=== PATIENT | male | born 1945 | race Caucasian/White ===

== ENCOUNTER 2017-01-14 15:16 | Emergency (ER) | payer OTHER ==
[~2017-01-14] VITALS: Ht 175.3 cm; Wt 83.9 kg
[~2017-01-14 15:16] MED LIST: ASPIR 8181 MG PO; BENADRYL25 MG PO; BYSTOLIC 5 MG5 M1 PO; CATAPRES0.2 MG PO; CENTRUM SILVER1 EAC4 PO; CIPROFLOXACIN500 M1 PO; CLONIDINE PO; FLAGYL500 MG PO; FLOMAX PO; FLOMAX0.4 MG PO; HYDROCHLOROTHIA25 M1 PO; HYDROCODON-ACE1 EAC7 PO; LORAZEPAM 1 MG T1 MG PO; LORTAB 7.5/5001 TA3 PO; PRILOSEC 20 MG20 MG PO; PRILOSEC40 MG PO; PROZAC40 MG PO; SAW PALMETTO500 MG PO
[2017-01-14 16:03] LABS: HEMATOCRIT 43.5 % (42.0-52.0); HEMOGLOBIN 14.2 gm/dL (14.0-18.0); MANUAL DIFF YES; MCH 23.5 pg (26.0-34.0); MCHC 32.5 g/dL (28.0-37.0); MCV 72.1 fL (80.0-100.0); PLATELET COUNT 303 thou/uL (150-400); RBC 6.04 mil/uL (4.50-6.00); RDW 16.6 % (10.5-14.5); WBC 14.4 thou/uL (4.0-11.0)
[2017-01-14 16:26] LABS: CALCIUM 8.9 mg/dL (8.5-10.1); CREATININE 1.2 mg/dL (0.7-1.3); POTASSIUM 4.1 mmol/L (3.5-5.1)
[2017-01-14 16:27] LABS: ABSOLUTE NEUTROPHILS 12.1 thou/uL (1.4-8.2); ANISOCYTOSIS 1+; TOTAL CELL COUNT 100
[2017-01-14 16:28] LABS: MICROCYTES 1+
[2017-01-14 16:31] LABS: ALBUMIN 3.6 g/dL (3.4-5.0); TOTAL BILIRUBIN 0.6 mg/dL (<0.1-1.0)
[2017-01-14 16:52] LABS: URINE BILIRUBIN NEGATIVE (Negative); URINE BLOOD NEGATIVE (Negative); URINE COLOR YELLOW; URINE GLUCOSE-RANDOM* NEGATIVE (Negative); URINE KETONES NEGATIVE (Negative); URINE NITRITE NEGATIVE (Negative); URINE PROTEIN (DIPSTICK) NEGATIVE (Negative); URINE UROBILINOGEN 0.2 E.U./dl (0.2-1.0)
[2017-01-14] MEDS ORDERED: FLAGYL500 MG PO (17:50)
[2017-01-14] MEDS ORDERED: ONDANSETRON HCL4 M2 PO (17:50)
[2017-01-14] MEDS ORDERED: CIPRO500 MG PO (17:50)
[2017-01-14] MEDS ORDERED: NORCO 5-325 TA1 EACH PO (17:54)
== END 2017-01-14 18:14 | disposition home or self-care (01) ==
LOC: ER 15:16
PROVIDERS: Physician Assistant
DX: K57.92 Diverticulitis of intestine, part unspecified, without perforation or abscess without bleeding (principal); I10 Essential (primary) hypertension; E78.00 Pure hypercholesterolemia, unspecified; F32.9 Major depressive disorder, single episode, unspecified; F41.9 Anxiety disorder, unspecified; N40.0 Benign prostatic hyperplasia without lower urinary tract symptoms; Z90.49 Acquired absence of other specified parts of digestive tract; Z88.0 Allergy status to penicillin

== ENCOUNTER 2017-02-04 11:12 | Emergency (ER) | payer OTHER ==
[~2017-02-04] VITALS: Ht 175.3 cm; Wt 83.9 kg
[~2017-02-04 11:12] MED LIST changes: +CIPRO500 MG PO; +NORCO 5-325 TA1 EACH PO; +ONDANSETRON HCL4 M2 PO
[2017-02-04] MEDS ORDERED: LORAZEPAM 2MG TA2 M1 PO (11:58)
== END 2017-02-04 12:44 | disposition home or self-care (01) ==
LOC: ER 11:12
DX: F13.239 Sedative, hypnotic or anxiolytic dependence with withdrawal, unspecified (principal); I10 Essential (primary) hypertension; E78.00 Pure hypercholesterolemia, unspecified; F32.9 Major depressive disorder, single episode, unspecified; F41.9 Anxiety disorder, unspecified; N40.0 Benign prostatic hyperplasia without lower urinary tract symptoms; Z90.49 Acquired absence of other specified parts of digestive tract; Z88.0 Allergy status to penicillin; Z87.891 Personal history of nicotine dependence

== ENCOUNTER 2017-07-04 18:36 | Inpatient (IN) | payer OTHER ==
[~2017-07-04] VITALS: Ht 175.3 cm; Wt 81.6 kg
--- NOTE | ~2017-07-04 | EKG ---
[address] [address] ELECTROCARDIOGRAM REPORT Name: VERANALDO CONN Room #: [facility].REda#: [id number] Admission: Attend Phys: Discharge: Date of : 43 Report #: [id number] THIS REPORT FOR: //name// [facility] ED Test Date: 2017-07-04 Test Time: 18:53:37 Pat Name: NALDO GAMEZ Department: Room: Gender: Dye Can Operator: Tevin FERREIRA : 1945 Requested By: Say Zapata Order Number: [id number] MD: Mark Russell Measurements Intervals [place] Rate: 45 P: 65 [place]: 53 QRS: 21 QRSD: 92 T: 47 QT: 484 QTc: 419 Interpretive Statements Sinus rhythm Atrial premature complexes Electronically Signed On 07-04-2017 19:29:22 LINOTYPE OPERATOR by Mark Russell [email or web address] <ELECTRONICALLY SIGNED> By: Mark Russell MD 07/04/17 1929 1853 185 Mark Russell MD /EPI
--- NOTE | ~2017-07-04 | 2DMMODE ---
[facility] [place] [address] 2 D/M-MODE ECHOCARDIOGRAM Name: NALDO GAMEZ Room #: 170-4 ADM IN ..#: [id number] Admission: 07/04/17 Attend Phys: Salomon Saravia, Discharge: Date of : 43 Date of Service: 07/05/17 1607 Report #: [id number] THIS REPORT FOR: //name// APPROVED REPORT Study performed: 07/05/2017 14:33:17 EXAM: Comprehensive 2D, Doppler, and color-flow Echocardiogram Patient Location: ER Room #: 16 Status: routine BSA: 1.98 HR: 68 bpm BP: 183/116 mmHg Other Information Study Quality: Adequate Indications Palpitations Near syncope, hypertensive urgency 2D Dimensions RVDd: 30.45 mm LVEF(%): 65.08 (>50%) IVSd: 16.94 (7-11mm) LVOT Diam: 20.87 (18-24mm) LVDd: 39.77 mm PWd: 15.72 (7-11mm) Ascending Ao: 34.06 (22-36mm) LVDs: 25.79 (25-40mm) Aortic Root: 36.46 mm Strickland's LVEF: 65.08 % Volumes Left Atrial Volume (Systole) Single Plane 4CH: 48.28 mL Single Plane 2CH: 85.76 mL LA ESV Index: 36.00 mL/m2 Aortic Valve AoV Peak Solomon.: 1.49 m/s AO Peak Gr.: 9.25 mmHg LVOT Max P.78 mmHg AO Mean Gr.: 4.76 mmHg AO V2 Mean: 1.03 m/s LVOT Max V: 0.97 m/s AO V2 VTI: 28.61 cm DARREN Vmax: 2.24 cm2 Mitral Valve [facility] [place] [address] 2 D/M-MODE ECHOCARDIOGRAM Name: VERANALDO Radha Room #: 170-4 [facility] IN M.R.#: [id number] Admission: 07/04/17 Attend Phys: Salomon Saravia, Discharge: Date of : 43 Date of Service: 07/05/17 1607 Report #: [id number] E/A Ratio: 0.9 MV Decel. Time: 309.56 ms MV E Max Solomon.: 0.71 m/s MV A Solomon.: 0.80 m/s MV PHT: 89.77 ms IVRT: 115.34 ms Pulmonary Valve PV Peak Solomon.: 1.03 m/s PV Peak Gr.: 4.20 mmHg Tricuspid Valve TR Peak Solomon.: 2.94 m/s TR Peak Gr.: 34.59 mmHg Left Ventricle The left ventricle is normal size. There is normal LV segmental wall motion. Moderate concentric left ventricular hypertrophy. Left ventricular systolic function is normal. LVEF is 60-65%. Grade I - abnormal relaxation pattern. Right Ventricle The right ventricle is normal size. The right ventricular systolic function is normal. Atria Left atrium is dilated. The right atrium size is normal. Aortic Valve The Aortic valve is sclerotic. Mild aortic regurgitation. There is no aortic valvular stenosis. Mitral Valve The mitral valve is normal in structure. Mild mitral regurgitation. No evidence of mitral valve stenosis. Tricuspid Valve The tricuspid valve is normal in structure. Trace to mild tricuspid regurgitation. Estimated PAP 35 mmHg + right atrial pressure. Pulmonic Valve The pulmonary valve is normal in structure. There is no pulmonic valvular regurgitation. Great Vessels The aortic root is normal in size. The ascending aorta is normal in [address] [place] [address] 2 D/M-MODE ECHOCARDIOGRAM Name: NALDO GAMEZ Room #: 170-4 ADM IN .R.#: [id number] Admission: 07/04/17 Attend Phys: Salomon Saravia, Discharge: Date of : 43 Date of Service: 07/05/17 1607 Report #: [id number] size. IVC is not well visualized. Pericardium There is no pericardial effusion. <Conclusion> Left ventricular systolic function is normal. LVEF is 60-65%. Grade I diastolic dysfunction Left atrium is dilated. The Aortic valve is sclerotic. Mild aortic regurgitation. The mitral valve is normal in structure. Mild mitral regurgitation. Trace to mild tricuspid regurgitation. Estimated pulmonary artery pressure of 35 mmHg + right atrial pressure. There is no pericardial effusion. <ELECTRONICALLY SIGNED> By: Jerod Morrow MD, FACC 07/05/17 160 06 06 Jerod Morrow MD, FAC /INF
[~2017-07-04 18:36] MED LIST changes: +ATIVAN0.5 MG PO; +BYSTOLIC2.5 MG PO; +LORAZEPAM 2MG TA2 M1 PO; +PROZAC20 MG PO
[2017-07-04 19:05] VITALS: BP 200/85
[2017-07-04 19:11] LABS: HEMATOCRIT 45.1 % (42.0-52.0); HEMOGLOBIN 14.9 gm/dL (14.0-18.0); MCV 75.7 fL (80.0-100.0); RBC 5.96 mil/uL (4.50-6.00); RDW 16.7 % (10.5-14.5); WBC 9.3 thou/uL (4.0-11.0)
[2017-07-04 19:20] LABS: ANION GAP 8 mmol/L (7-16); BUN 17 mg/dL (7-18); CALCIUM 9.4 mg/dL (8.5-10.1); CHLORIDE 101 mmol/L (98-107); CO2 31 mmol/L (21-32); CREATININE 1.2 mg/dL (0.7-1.3); GLUCOSE 90 mg/dL (74-106); POTASSIUM 3.4 mmol/L (3.5-5.1); SODIUM 140 mmol/L (136-145)
[2017-07-04 19:28] LABS: ALBUMIN 4.1 g/dL (3.4-5.0); SGOT 24 U/L (15-37); SGPT 22 U/L (30-65); TOTAL BILIRUBIN 0.6 mg/dL (<0.1-1.0); TOTAL PROTEIN 7.6 g/dL (6.4-8.2); TROPONIN-I < 0.04 ng/mL (<0.06)
[2017-07-05 06:58] VITALS: BP 194/83
[2017-07-05 10:09] VITALS: BP 183/116
[2017-07-05 16:40] VITALS: BP 181/90
[2017-07-05 17:04] VITALS: BP 151/93
[2017-07-05 20:00] VITALS: BP 165/78
[2017-07-06 00:52] VITALS: BP 201/113
[2017-07-06 00:54] VITALS: BP 184/113
[2017-07-06 04:00] VITALS: BP 190/105
[2017-07-06 07:10] VITALS: BP 183/102
[2017-07-06] MEDS ORDERED: COZAAR 50 MG TA50 M1 PO (12:43)
[2017-07-06] MEDS ORDERED: NIFEDIPINE ER30 M1 PO (12:43)
[2017-07-06 13:36] VITALS: BP 182/102
== END 2017-07-06 14:43 | disposition home or self-care (01) | DRG 304 ==
LOC: ER 18:36 → 4E 19:50 → EROBS 19:50 → ER 19:50 → 4E 07-05 16:41
PROVIDERS: Emergency Medicine
DX: I16.0 Hypertensive urgency (principal); G93.40 Encephalopathy, unspecified; E78.00 Pure hypercholesterolemia, unspecified; I10 Essential (primary) hypertension; N40.0 Benign prostatic hyperplasia without lower urinary tract symptoms; F32.9 Major depressive disorder, single episode, unspecified; F41.9 Anxiety disorder, unspecified; I95.1 Orthostatic hypotension; Z90.49 Acquired absence of other specified parts of digestive tract; Z88.0 Allergy status to penicillin; Z87.891 Personal history of nicotine dependence; Z23 Encounter for immunization
CPT/HCPCS: 10183

== ENCOUNTER 2017-07-11 10:39 | Inpatient (IN) | payer OTHER ==
[~2017-07-11] VITALS: Ht 175.3 cm; Wt 75.7 kg
--- NOTE | ~2017-07-11 | EKG ---
[address] [place] [address] ELECTROCARDIOGRAM REPORT Name: NALDO GAMEZ Room #: 205-P ADM IN M.R.#: [id number] Admission: 07/11/17 Attend Phys: Salomon Saravia MD Discharge: Date of : 43 Report #: [id number] THIS REPORT FOR: //name// [facility] Test Date: 2017-07-11 Test Time: 15:53:26 Pat Name: NALDO GAMEZ Department: Room: 205 P Gender: M Media Marketing Manager: Ramila MONDRAGON : 1945 Requested By: Salomon Saravia Order Number: [id number] MD: Jerod Morrow Measurements Intervals [place] Rate: 84 P: 66 MA: 35 QRS: 31 QRSD: 87 T: 43 QT: 474 QTc: 561 Interpretive Statements Sinus rhythm Atrial premature complexes Short [place] interval Abnormal R-wave progression, early transition Nonspecific ST and T wave abnormality Prolonged QT interval Compared to ECG 07/04/2017 18:53:37 Premature ventricular complexes are now present Electronically Signed On 07-12-2017 8:03:46 LINE BUILDER by Jerod Morrow [email or web address] <ELECTRONICALLY SIGNED> By: Jerod Morrow MD, [facility] 07/12/17 0803 1553 1553 Jerod Morrow MD, [facility] /EPI
--- NOTE | ~2017-07-11 | EKG ---
[address] [place] [employer] [place] [address] ELECTROCARDIOGRAM REPORT Name: NALDO GAMEZ Room #: 205-P ADM IN M.R.#: [id number] Admission: 07/11/17 Attend Phys: Salomon Saravia MD Discharge: Date of : 43 Report #: [id number] THIS REPORT FOR: //name// [facility] ED Test Date: 2017-07-11 Test Time: 11:46:18 Pat Name: NALDO GAMEZ Department: Room: 205 Gender: M Relief Mate: KF : 1945 Requested By: Claire Church Order Number: [id number] MD: Jerod Morrow Measurements Intervals [place] Rate: 71 P: -21 OR: 130 QRS: 26 QRSD: 85 T: -12 QT: 467 QTc: 508 Interpretive Statements Sinus rhythm Occasional supraventricular complexes Nonspecific repol abnormality, diffuse leads Prolonged QT interval Compared to ECG 07/04/2017 18:53:37 Prolonged QT interval now present Electronically Signed On 07-12-2017 7:56:09 REPORT MANAGER by Jerod Morrow [email or web address] <ELECTRONICALLY SIGNED> By: Jerod Morrow MD, [facility] 07/12/17 0756 1146 1146 Jerod Morrow MD, [facility] /EPI
[~2017-07-11 10:39] MED LIST changes: +COZAAR 50 MG TA50 M1 PO; +NIFEDIPINE ER30 M1 PO
[2017-07-11 10:40] VITALS: BP 194/111
[2017-07-11 11:14] LABS: ABSOLUTE NEUTROPHILS 7.9 thou/uL (1.4-8.2); BASOPHILS 0.8 % (0.0-2.0); EOSINOPHILS 0.6 % (0.0-3.0); HEMATOCRIT 48.2 % (42.0-52.0); HEMOGLOBIN 16.3 gm/dL (14.0-18.0); LYMPHOCYTES 11.9 % (24.0-44.0); MCH 25.4 pg (26.0-34.0); MCHC 33.9 g/dL (28.0-37.0); MCV 74.9 fL (80.0-100.0); MONOCYTES 6.2 % (1.0-8.0); PLATELET COUNT 306 thou/uL (150-400); POLYS 80.5 % (36.0-66.0); RBC 6.43 mil/uL (4.50-6.00); RDW 17.1 % (10.5-14.5); WBC 9.8 thou/uL (4.0-11.0)
[2017-07-11 11:23] LABS: ANION GAP 16 mmol/L (7-16); BUN 19 mg/dL (7-18); CALCIUM 9.4 mg/dL (8.5-10.1); CHLORIDE 104 mmol/L (98-107); CO2 22 mmol/L (21-32); GLUCOSE 123 mg/dL (74-106); POTASSIUM 3.1 mmol/L (3.5-5.1); SODIUM 142 mmol/L (136-145)
[2017-07-11 11:31] LABS: ALBUMIN 3.9 g/dL (3.4-5.0); SGOT 31 U/L (15-37); SGPT 28 U/L (30-65); TOTAL BILIRUBIN 1.4 mg/dL (<0.1-1.0); TOTAL PROTEIN 7.6 g/dL (6.4-8.2); TROPONIN-I < 0.04 ng/mL (<0.06)
[2017-07-11 12:50] VITALS: BP 184/101
[2017-07-11 14:44] VITALS: BP 179/90
[2017-07-11 15:21] VITALS: BP 152/64
[2017-07-11] MEDS ORDERED: CLONIDINE HCL0.2 M2 PO (16:27)
[2017-07-11] MEDS ORDERED: PROZAC20 MG PO (16:30)
[2017-07-11] MEDS ORDERED: FLOMAX0.4 MG PO (16:31)
[2017-07-11 16:35] VITALS: BP 149/90
[2017-07-11 16:59] LABS: URINE BLOOD NEGATIVE (Negative); URINE CLARITY CLEAR; URINE COLOR YELLOW; URINE GLUCOSE-RANDOM* NEGATIVE (Negative); URINE KETONES 3+ (Negative); URINE LEUKOCYTES NEGATIVE (Negative); URINE NITRITE NEGATIVE (Negative); URINE PROTEIN (DIPSTICK) 2+ (Negative)
[2017-07-11 17:19] LABS: ICTOTEST (BILI CONFIRMATORY) Negative (Negative); URINE BILIRUBIN NEGATIVE (Negative); URINE REDUCING SUBSTANCE NEGATIVE
[2017-07-11 17:22] LABS: BACTERIA 1-9 Few /HPF (None Seen); CASTS None Seen /LPF (None Seen); MUCUS >6 Heavy strn/LPF (None Seen); SQUAMOUS 0-3 Few /LPF (0-3); URINE RBC 0-2 Rare /HPF (0-2); URINE WBC 0-5 Rare /HPF (0-5)
[2017-07-11 17:23] LABS: CALCIUM OXALATE 0-3 Few /LPF (None Seen)
[2017-07-11 19:50] VITALS: BP 123/63
[2017-07-12 00:15] VITALS: BP 137/63
[2017-07-12 04:45] VITALS: BP 146/78
[2017-07-12 08:37] VITALS: BP 107/67
[2017-07-12 12:51] VITALS: BP 117/77
[2017-07-12 16:55] VITALS: BP 122/70
[2017-07-12 20:10] VITALS: BP 131/64
[2017-07-13 00:25] VITALS: BP 166/83
[2017-07-13 04:50] VITALS: BP 152/87
[2017-07-13] MEDS ORDERED: NIFEDIPINE ER30 M1 PO (07:34)
[2017-07-13 07:52] VITALS: BP 128/65
[2017-07-13 11:08] VITALS: BP 154/87
[2017-07-13 15:10] VITALS: BP 154/87
[2017-07-13 16:24] VITALS: BP 154/87
== END 2017-07-13 16:50 | disposition home health service (06) | DRG 304 ==
LOC: ER 10:39 → 2N 12:28 → EROBS 12:28 → 2N 14:16 → ENTRNSPT 07-13 16:10 → 2N 07-13 16:50
PROVIDERS: Physician Assistant
DX: I16.1 Hypertensive emergency (principal); G93.40 Encephalopathy, unspecified; E87.6 Hypokalemia; F41.9 Anxiety disorder, unspecified; F03.90 Unspecified dementia, unspecified severity, without behavioral disturbance, psychotic disturbance, mood disturbance, and anxiety; Z91.14 Patient's other noncompliance with medication regimen; Z79.899 Other long term (current) drug therapy; Z88.0 Allergy status to penicillin; Z87.891 Personal history of nicotine dependence; Z88.1 Allergy status to other antibiotic agents; Z88.8 Allergy status to other drugs, medicaments and biological substances
CPT/HCPCS: 10081

== ENCOUNTER 2017-07-15 17:56 | Inpatient (IN) | payer OTHER ==
[~2017-07-15] VITALS: Ht 175.3 cm; Wt 72.1 kg
--- NOTE | ~2017-07-15 | EKG ---
[place] [address] [facility] [place] [address] ELECTROCARDIOGRAM REPORT Name: NALDO GAMEZ Room #: 353-P ADM IN M.R.#: [id number] Admission: 07/15/17 Attend Phys: Salomon Saravia MD Discharge: Date of : 43 Report #: [id number] THIS REPORT FOR: //name// [facility] ED Test Date: 2017-07-15 Test Time: 18:31:23 Pat Name: NALDO GAMEZ Department: Room: 353 Gender: M Tableau Developer: Alan NEGRETE : 1945 Requested By: Salomon Saravia Order Number: [id number] MD: Jerod Morrow Measurements Intervals [place] Rate: 63 P: -11 [place]: 149 QRS: 25 QRSD: 90 T: 33 QT: 472 QTc: 484 Interpretive Statements Sinus rhythm Atrial premature complex Nonspecific ST and T wave abnormality Borderline prolonged QT interval Baseline wander in lead(s) V2 Compared to ECG 07/15/2017 18:16:10 Atrial premature complex(es) now present Electronically Signed On 07-18-2017 12:56:09 CDT by Jerod Morrow [email or web address] <ELECTRONICALLY SIGNED> By: Jerod Morrow MD, [facility] 07/18/17 1256 183 183 Jerod Morrow MD, [facility] /EPI
--- NOTE | ~2017-07-15 | EKG ---
[place] [address] [address] [facility] [place] [address] ELECTROCARDIOGRAM REPORT Name: NALDO GAMEZ Room #: 353-P ADM IN M.R.#: [id number] Admission: 07/15/17 Attend Phys: Salomon Saravia MD Discharge: Date of : 43 Report #: [id number] THIS REPORT FOR: //name// [facility] ED Test Date: 2017-07-15 Test Time: 18:16:10 Pat Name: NALDO GAMEZ Department: Room: [facility] Gender: M Aeronautical Test Engineer: SHERI : 1945 Requested By: Say Zapata Order Number: [id number] MD: Jerod Morrow Measurements Intervals [place] Rate: 64 P: 258 GA: 132 QRS: 19 QRSD: 100 T: 30 QT: 462 QTc: 477 Interpretive Statements Artifact limits interpretation Probable Sinus rhythm Nonspecific ST segment abnormality Compared to ECG 07/11/2017 15:53:26 Premature supraventricular complexes are no longer present Electronically Signed On 07-16-2017 14:26:23 CDT by Jerod Morrow [email or web address] <ELECTRONICALLY SIGNED> By: Jerod Morrow MD, [facility] 07/16/17 1426 181 15 Jerod Morrow MD, [facility] /EPI
--- NOTE | ~2017-07-15 | EKG ---
[place] [address] [facility], [place] [address] ELECTROCARDIOGRAM REPORT Name: NALDO GAMEZ Room #: 353-P ADM IN M.R.#: [id number] Admission: 07/15/17 Attend Phys: Salomon Saravia MD Discharge: Date of : 43 Report #: [id number] THIS REPORT FOR: //name// [facility] Test Date: 2017-07-17 Test Time: 14:33:25 Pat Name: NALDO GAMEZ Department: Room: 353 Gender: M Dishwasher Preparer: Ramila MONDRAGON : 1945 Requested By: Salomon Saravia Order Number: [id number] MD: Jerod Morrow Measurements Intervals [place] Rate: 65 P: 0 [place]: 44 QRS: 133 QRSD: 137 T: -7 QT: 494 QTc: 514 Interpretive Statements Sinus rhythm Short [place] interval RBBB Compared to ECG 07/15/2017 18:16:10 Right bundle branch block is now present Electronically Signed On 07-18-2017 13:22:20 CDT by Jerod Morrow [email or web address] <ELECTRONICALLY SIGNED> By: Jerod Morrow MD, [facility] 07/18/17 1322 1433 1433 Jerod Morrow MD, [facility] /EPI
[~2017-07-15 17:56] MED LIST changes: +CLONIDINE HCL0.2 M2 PO
[2017-07-15 18:06] VITALS: BP 196/102
[2017-07-15 18:39] LABS: ABSOLUTE NEUTROPHILS 10.7 thou/uL (1.4-8.2); BASOPHILS 0.8 % (0.0-2.0); HEMATOCRIT 49.2 % (42.0-52.0); HEMOGLOBIN 16.4 gm/dL (14.0-18.0); LYMPHOCYTES 13.1 % (24.0-44.0); MCH 25.7 pg (26.0-34.0); MCHC 33.2 g/dL (28.0-37.0); MCV 77.4 fL (80.0-100.0); PLATELET COUNT 357 thou/uL (150-400); POLYS 80.1 % (36.0-66.0); RBC 6.36 mil/uL (4.50-6.00); RDW 17.3 % (10.5-14.5); WBC 13.3 thou/uL (4.0-11.0)
[2017-07-15 18:44] LABS: ANION GAP 6 mmol/L (7-16); BUN 20 mg/dL (7-18); CALCIUM 9.3 mg/dL (8.5-10.1); CHLORIDE 104 mmol/L (98-107); CO2 31 mmol/L (21-32); CREATININE 1.2 mg/dL (0.7-1.3); GLUCOSE 104 mg/dL (74-106); POTASSIUM 3.2 mmol/L (3.5-5.1); SODIUM 141 mmol/L (136-145)
[2017-07-15 18:53] LABS: ALBUMIN 3.9 g/dL (3.4-5.0); SGOT 36 U/L (15-37); SGPT 39 U/L (30-65); TOTAL BILIRUBIN 0.6 mg/dL (<0.1-1.0); TOTAL PROTEIN 7.8 g/dL (6.4-8.2); TROPONIN-I < 0.04 ng/mL (<0.06)
[2017-07-15 20:50] VITALS: BP 185/99
[2017-07-15 21:11] VITALS: BP 180/128
[2017-07-16 00:08] VITALS: BP 145/88
[2017-07-16 04:00] VITALS: BP 161/85
[2017-07-16 09:38] VITALS: BP 144/84
[2017-07-16 12:18] VITALS: BP 156/77
[2017-07-16 16:57] VITALS: BP 152/116
[2017-07-16 19:45] VITALS: BP 141/91
[2017-07-17] VITALS (11 sets, daily range): BP systolic 73–153; BP diastolic 50–98
[2017-07-17 14:37] LABS: HEMOGLOBIN 16.6 gm/dL (14.0-18.0); MCH 25.5 pg (26.0-34.0); MCHC 33.3 g/dL (28.0-37.0); MCV 76.7 fL (80.0-100.0); RBC 6.52 mil/uL (4.50-6.00); RDW 17.6 % (10.5-14.5); WBC 12.5 thou/uL (4.0-11.0)
[2017-07-17 14:44] LABS: CALCIUM 9.2 mg/dL (8.5-10.1); CREATININE 1.3 mg/dL (0.7-1.3)
[2017-07-18 04:22] VITALS: BP 149/91
[2017-07-18 07:51] VITALS: BP 128/79
[2017-07-18 13:12] VITALS: BP 130/82
[2017-07-18 19:23] VITALS: BP 161/86
[2017-07-19 04:00] VITALS: BP 141/92
[2017-07-19 06:26] LABS: CALCIUM 9.5 mg/dL (8.5-10.1); CREATININE 1.2 mg/dL (0.7-1.3)
[2017-07-19 06:28] LABS: POTASSIUM 4.1 mmol/L (3.5-5.1)
[2017-07-19 07:34] VITALS: BP 133/89
[2017-07-19 10:37] VITALS: BP 133/89
[2017-07-19 12:18] VITALS: BP 153/83
[2017-07-19 14:58] VITALS: BP 147/92
[2017-07-20 04:00] VITALS: BP 147/89
[2017-07-20 07:30] VITALS: BP 152/98
[2017-07-20 08:33] VITALS: BP 152/98
== END 2017-07-20 11:27 | DRG 304 ==
LOC: ER 17:56 → EROBS 19:18 → 3W 19:18 → 4S 20:51 → 3W 22:06
PROVIDERS: Emergency Medicine; Family Medicine
DX: I16.1 Hypertensive emergency (principal); G93.40 Encephalopathy, unspecified; I16.0 Hypertensive urgency; F03.90 Unspecified dementia, unspecified severity, without behavioral disturbance, psychotic disturbance, mood disturbance, and anxiety; I10 Essential (primary) hypertension; Z88.0 Allergy status to penicillin; Z88.8 Allergy status to other drugs, medicaments and biological substances; Z87.891 Personal history of nicotine dependence; Z79.899 Other long term (current) drug therapy
CPT/HCPCS: 10779; 10879

== ENCOUNTER 2017-07-31 19:56 | Inpatient (IN) | payer OTHER ==
[~2017-07-31] VITALS: Ht 162.6 cm; Wt 77.6 kg
--- NOTE | ~2017-07-31 | EKG ---
[place] [address] [facility] [place] [address] ELECTROCARDIOGRAM REPORT Name: NALDO GAMEZ Room #: 457-P [facility] M.R.#: [id number] Admission: 07/31/17 Attend Phys: Salomon Saravia MD Discharge: Date of : 43 Report #: [id number] THIS REPORT FOR: //name// [facility] ED Test Date: 2017-07-31 Test Time: 20:00:29 Pat Name: NALDO GAMEZ Department: Room: [facility] Gender: M Roll Inspector: CHANDLER : 1945 Requested By: Leonard Clancy Order Number: [id number] MD: Jerod Morrow Measurements Intervals [place] Rate: 75 P: 13 [place]: 220 QRS: 15 QRSD: 86 T: 30 QT: 415 QTc: 464 Interpretive Statements Sinus rhythm with occasional junctional complexes Prolonged [place] interval Minimal ST depression, lateral leads Compared to ECG 07/17/2017 14:33:25 Occasional junctional complexes are now present Incomplete right bundle-branch block no longer present Electronically Signed On 08-01-2017 7:47:18 CDT by Jerod Morrow [email or web address] <ELECTRONICALLY SIGNED> By: Jerod Morrow MD, FAC 08/01/17 0747 99 99 Jerod Morrow MD, [facility] /EPI
[2017-07-31 19:56] VITALS: BP 130/76
[2017-07-31] MEDS ORDERED: BYSTOLIC 5 MG5 M1 PO (20:27)
[2017-07-31] MEDS ORDERED: SERTRALINE HCL50 MG PO (20:27)
[2017-07-31 20:28] LABS: ABSOLUTE NEUTROPHILS 10.8 thou/uL (1.4-8.2); BASOPHILS 0.4 % (0.0-2.0); EOSINOPHILS 0.5 % (0.0-3.0); HEMATOCRIT 40.9 % (42.0-52.0); HEMOGLOBIN 13.7 gm/dL (14.0-18.0); MCH 25.7 pg (26.0-34.0); MCHC 33.4 g/dL (28.0-37.0); MONOCYTES 3.9 % (1.0-8.0); PLATELET COUNT 214 thou/uL (150-400); POLYS 92.2 % (36.0-66.0); RBC 5.31 mil/uL (4.50-6.00); RDW 19.4 % (10.5-14.5); WBC 11.7 thou/uL (4.0-11.0)
[2017-07-31 20:40] LABS: ANION GAP 11 mmol/L (7-16); BUN 24 mg/dL (7-18); CALCIUM 8.5 mg/dL (8.5-10.1); CHLORIDE 100 mmol/L (98-107); CO2 26 mmol/L (21-32); CREATININE 1.3 mg/dL (0.7-1.3); GLUCOSE 76 mg/dL (74-106); SODIUM 137 mmol/L (136-145)
[2017-07-31 20:41] LABS: POTASSIUM 2.9 mmol/L (3.5-5.1)
[2017-07-31 20:48] LABS: TROPONIN-I < 0.04 ng/mL (<0.06)
[2017-07-31 20:55] LABS: ANISOCYTOSIS 2+
[2017-07-31 21:45] VITALS: BP 124/59
[2017-07-31 22:05] VITALS: BP 135/58
[2017-08-01] VITALS (7 sets, daily range): BP systolic 100–143; BP diastolic 51–74
[2017-08-01 01:21] LABS: CALCIUM 8.1 mg/dL (8.5-10.1); CREATININE 1.3 mg/dL (0.7-1.3); MAGNESIUM 1.8 mg/dL (1.8-2.4); POTASSIUM 3.1 mmol/L (3.5-5.1)
[2017-08-01 09:21] LABS: CALCIUM 8.2 mg/dL (8.5-10.1); CREATININE 1.2 mg/dL (0.7-1.3); POTASSIUM 3.2 mmol/L (3.5-5.1)
[2017-08-02 03:59] VITALS: BP 152/85
[2017-08-02 08:59] VITALS: BP 183/77
[2017-08-02 15:28] VITALS: BP 183/77
[2017-08-02 16:17] VITALS: BP 105/72
[2017-08-02 16:44] VITALS: BP 183/77
== END 2017-08-02 17:37 | disposition home health service (06) | DRG 305 ==
LOC: ER 19:56 → EROBS 21:20 → 4W 21:20 → ENTRNSPT 08-02 17:16 → 4W 08-02 17:37
PROVIDERS: Family Medicine; Physician Assistant
DX: I16.0 Hypertensive urgency (principal); I95.1 Orthostatic hypotension; F41.9 Anxiety disorder, unspecified; E87.6 Hypokalemia; Z88.0 Allergy status to penicillin; Z88.8 Allergy status to other drugs, medicaments and biological substances; Z79.899 Other long term (current) drug therapy; Z90.89 Acquired absence of other organs; Z87.891 Personal history of nicotine dependence
CPT/HCPCS: 10040

== ENCOUNTER 2017-08-17 11:35 | Emergency (ER) | payer OTHER ==
[~2017-08-17] VITALS: Ht 175.3 cm; Wt 68.0 kg
[~2017-08-17 11:35] MED LIST changes: +SERTRALINE HCL50 MG PO
== END 2017-08-17 14:01 | disposition home or self-care (01) ==
LOC: ER 11:35
DX: H61.23 Impacted cerumen, bilateral (principal); I10 Essential (primary) hypertension; Z88.0 Allergy status to penicillin; Z88.1 Allergy status to other antibiotic agents

== ENCOUNTER 2017-08-30 10:30 | Emergency (ER) | payer OTHER ==
[~2017-08-30] VITALS: Ht 175.3 cm; Wt 68.0 kg
--- NOTE | ~2017-08-30 | EKG ---
[place] [address] [facility] [employer] [place] [address] ELECTROCARDIOGRAM REPORT Name: VERANALDO Room #: [facility]..#: [id number] Admission: Attend Phys: Discharge: Date of : 43 Report #: [id number] THIS REPORT FOR: //name// [facility] ED Test Date: 2017-08-30 Test Time: 10:55:20 Pat Name: NALDO GAMEZ Department: Room: Gender: M Manager Services: : 1945 Requested By: Jemal Snyder Order Number: [id number] MD: Measurements Intervals [place] Rate: 60 P: 32 ID: 216 QRS: 4 QRSD: 83 T: 73 QT: 446 QTc: 446 Interpretive Statements Sinus rhythm Atrial premature complex Borderline prolonged [place] interval Abnormal T, consider ischemia, lateral leads Compared to ECG 07/31/2017 20:00:29 Atrial premature complex(es) now present T-wave abnormality now present Possible ischemia now present ST (T wave) deviation no longer present [email or web address] By: 1055 1055 Epiphany EpiphanyMD /EPI
[2017-08-30 11:00] LABS: ABSOLUTE NEUTROPHILS 8.7 thou/uL (1.4-8.2); EOSINOPHILS 1.4 % (0.0-3.0); HEMATOCRIT 46.2 % (42.0-52.0); HEMOGLOBIN 15.8 gm/dL (14.0-18.0); LYMPHOCYTES 11.1 % (24.0-44.0); MCH 26.6 pg (26.0-34.0); MCHC 34.2 g/dL (28.0-37.0); MCV 77.8 fL (80.0-100.0); MONOCYTES 5.7 % (1.0-8.0); PLATELET COUNT 288 thou/uL (150-400); POLYS 80.8 % (36.0-66.0); RBC 5.94 mil/uL (4.50-6.00); RDW 19.7 % (10.5-14.5); WBC 10.8 thou/uL (4.0-11.0)
[2017-08-30 11:11] LABS: ANION GAP 4 mmol/L (7-16); BUN 20 mg/dL (7-18); CALCIUM 9.4 mg/dL (8.5-10.1); CHLORIDE 100 mmol/L (98-107); CO2 32 mmol/L (21-32); CREATININE 1.1 mg/dL (0.7-1.3); GLUCOSE 97 mg/dL (74-106); POTASSIUM 3.5 mmol/L (3.5-5.1); SODIUM 136 mmol/L (136-145)
[2017-08-30 11:20] LABS: TROPONIN-I < 0.04 ng/mL (<0.06)
== END 2017-08-30 12:58 | disposition home or self-care (01) ==
LOC: ER 10:30
PROVIDERS: Nurse Practitioner
DX: I10 Essential (primary) hypertension (principal); Z90.49 Acquired absence of other specified parts of digestive tract; Z88.0 Allergy status to penicillin; Z88.1 Allergy status to other antibiotic agents

== ENCOUNTER 2017-09-27 11:43 | Emergency (ER) | payer OTHER ==
[~2017-09-27] VITALS: Ht 172.7 cm; Wt 72.6 kg
[2017-09-27] MEDS ORDERED: PROPRANOLOL 1010 MG (12:50)
[2017-09-27 13:41] LABS: AMP/METHAMP Negative (Negative); BARBITURATES Negative (Negative); BENZODIAZEPINES Negative (Negative); COCAINE Negative (Negative); METHADONE Negative (Negative); OPIATES Negative (Negative); PCP Negative (Negative)
[2017-09-27 14:22] LABS: ABSOLUTE NEUTROPHILS 7.3 thou/uL (1.4-8.2); BASOPHILS 1.1 % (0.0-2.0); EOSINOPHILS 2.3 % (0.0-3.0); HEMOGLOBIN 16.2 gm/dL (14.0-18.0); LYMPHOCYTES 16.9 % (24.0-44.0); MCH 27.4 pg (26.0-34.0); MCHC 34.6 g/dL (28.0-37.0); MCV 79.4 fL (80.0-100.0); MONOCYTES 5.4 % (1.0-8.0); PLATELET COUNT 346 thou/uL (150-400); POLYS 74.3 % (36.0-66.0); RBC 5.92 mil/uL (4.50-6.00); RDW 17.9 % (10.5-14.5); WBC 9.8 thou/uL (4.0-11.0)
[2017-09-27 14:30] LABS: ANION GAP 7 mmol/L (7-16); BUN 22 mg/dL (7-18); CALCIUM 9.3 mg/dL (8.5-10.1); CHLORIDE 101 mmol/L (98-107); CO2 30 mmol/L (21-32); CREATININE 1.3 mg/dL (0.7-1.3); GLUCOSE 98 mg/dL (74-106); POTASSIUM 3.1 mmol/L (3.5-5.1); SODIUM 138 mmol/L (136-145)
[2017-09-27 14:36] LABS: ALBUMIN 3.7 g/dL (3.4-5.0); DIRECT BILIRUBIN 0.1 mg/dL (<0.1-0.3); SALICYLATE < 2.8 mg/dL (2.8-20.0); SGOT 31 U/L (15-37); SGPT 42 U/L (30-65); TOTAL BILIRUBIN 0.5 mg/dL (<0.1-1.0); TOTAL PROTEIN 7.5 g/dL (6.4-8.2)
== END 2017-09-27 21:28 | disposition short-term general hospital (02) ==
LOC: ER 11:43
PROVIDERS: Emergency Medicine
DX: F32.9 Major depressive disorder, single episode, unspecified (principal)

== ENCOUNTER 2018-07-21 10:13 | Inpatient (IN) | payer OTHER ==
[~2018-07-21] VITALS: Ht 175.3 cm; Wt 67.4 kg
[~2018-07-21 10:13] MED LIST changes: +PROPRANOLOL 1010 MG
[2018-07-21 10:14] VITALS: BP 130/98
[2018-07-21 10:56] LABS: ABSOLUTE NEUTROPHILS 12.9 thou/uL (1.4-8.2); BASOPHILS 0.3 % (0.0-2.0); EOSINOPHILS 0.1 % (0.0-3.0); HEMATOCRIT 53.4 % (42.0-52.0); HEMOGLOBIN 18.4 gm/dL (14.0-18.0); MCH 29.4 pg (26.0-34.0); MCHC 34.6 g/dL (28.0-37.0); MONOCYTES 2.9 % (1.0-8.0); PLATELET COUNT 250 thou/uL (150-400); POLYS 91.7 % (36.0-66.0); RBC 6.28 mil/uL (4.50-6.00); RDW 16.3 % (10.5-14.5); WBC 14.1 thou/uL (4.0-11.0)
[2018-07-21 11:05] LABS: ANION GAP 16 mmol/L (7-16); BUN 24 mg/dL (7-18); CALCIUM 8.6 mg/dL (8.5-10.1); CHLORIDE 98 mmol/L (98-107); CO2 23 mmol/L (21-32); CREATININE 1.8 mg/dL (0.7-1.3); GLUCOSE 134 mg/dL (74-106); POTASSIUM 3.5 mmol/L (3.5-5.1); SODIUM 137 mmol/L (136-145)
[2018-07-21] MEDS ORDERED: NORVASC5 MG PO (11:08)
[2018-07-21] MEDS ORDERED: BUSPIRONE HCL10 MG PO (11:08)
[2018-07-21] MEDS ORDERED: TOPROL XL25 MG PO (11:08)
[2018-07-21] MEDS ORDERED: SEROQUEL XR 30300 M1 PO (11:09)
[2018-07-21] MEDS ORDERED: TRAZODONE HCL50 MG PO (11:09)
[2018-07-21] MEDS ORDERED: ZOLOFT50 MG PO (11:09)
[2018-07-21 11:13] LABS: ALBUMIN 3.6 g/dL (3.4-5.0); SGOT 19 U/L (15-37); SGPT 17 U/L (30-65); TOTAL PROTEIN 7.3 g/dL (6.4-8.2); TROPONIN-I <0.06 ng/mL (<0.06)
[2018-07-21 11:17] LABS: INR 1.2; PROTIME 12.4 Seconds (9.3-11.4)
[2018-07-21 12:28] LABS: URINE BLOOD NEGATIVE (Negative); URINE CLARITY CLEAR; URINE COLOR YELLOW; URINE GLUCOSE-RANDOM* NEGATIVE (Negative); URINE KETONES 3+ (Negative); URINE LEUKOCYTES-REFLEX NEGATIVE (Negative); URINE NITRITE-REFLEX NEGATIVE (Negative); URINE PROTEIN (DIPSTICK) 1+ (Negative); URINE SPECIFIC GRAVITY >= 1.030 (1.005-1.035)
[2018-07-21 12:34] LABS: ICTOTEST (BILI CONFIRMATORY) Negative (Negative); URINE BILIRUBIN NEGATIVE (Negative)
[2018-07-21 12:35] LABS: BACTERIA-REFLEX None Seen /HPF (None Seen); CASTS None Seen /LPF (None Seen); CRYSTALS None Seen /LPF (None Seen); HYALINE CASTS 0-3 Few /LPF (None Seen); SQUAMOUS None Seen /LPF (0-3); URINE RBC None Seen /HPF (0-2); URINE WBC-REFLEX 0-5 Rare /HPF (0-5)
[2018-07-21 13:57] VITALS: BP 157/80
[2018-07-21 14:25] VITALS: BP 150/75; BP 174/79
--- NOTE | 2018-07-21 17:05 | NUR ---
PATIENT ADMITED FROM ER. ALERT AND ORIENTED WITH FORGETFULNESS. ADMISSION HX AND ASSESSMENT COMPLETED. DENIED HAVING PAIN OR DISCOMFORT. PT ORIENTED TO THE ROOM AND THE CALL SYSTEM. WILL CONTINUE TO MONITOR.
[2018-07-21 19:24] VITALS: BP 155/93
[2018-07-22 05:33] VITALS: BP 142/68
--- NOTE | 2018-07-22 07:41 | NUR ---
ASSESSMENTS CHARTED. DENIES PAIN. UP WITH STANDBY DUE TO SYNCOPE. UA SHOWED NO BACTERIA, CHEST XRAY SHOWS POSSIBLE MEDIAL RIGHT INFILTRATES. PLAN OF CARE TO WORK WITH MEDICATIONS TO CONTROL SYNCOPE.
[2018-07-22 07:44] VITALS: BP 146/72
[2018-07-22 11:58] VITALS: BP 149/74
--- NOTE | 2018-07-22 13:33 | EKG ---
[address] [place] [address] ELECTROCARDIOGRAM REPORT Name: KEVIN GAMEZ Room #: 204-P ADM IN M.R.#: [id number] ������������������ Admission: 07/21/18 ������������������ Attend Phys: Salomon Saravia MD Discharge: ������������������ Date of : 43 Report #: [id number] ����������������������������������������������������������������� [id number] THIS REPORT FOR: //name// [facility] ED Test Date: 2018-07-21 Test Time: 10:20:44 Pat Name: kevin gamez Department: Room: 204 Gender: M Drafter Electrical: JUDITH : 1945 Requested By: Order Number: [id number] MD: Jerod Morrow Measurements Intervals [place] Rate: 65 P: 25 DC: 235 QRS: 67 QRSD: 92 T: 55 QT: 527 QTc: 549 Interpretive Statements Sinus rhythm Prolonged [place] interval Nonspecific ST segment abnormality Prolonged QT interval Compared to ECG 08/30/2017 10:55:20 Prolonged QT interval now present Atrial premature complex(es) no longer present Electronically Signed On 07-22-2018 13:32:57 CDT by Jerod Morrow [email or web address] ��������������������������������������������� <ELECTRONICALLY SIGNED> ���������������������������������������� By: Jerod Morrow MD, [facility] ��������������������������������������������� 07/22/18 1332 1020 1020 Jerod Morrow MD, [facility] /EPI
[2018-07-22 15:27] VITALS: BP 140/65
--- NOTE | 2018-07-22 17:40 | NUR ---
ASSUMED CARE OF PT AT 0700. PT ALERT AND ORIENTED TO PLACE, SELF, SITUATION. PT HAD SLOW RESPONSES TO QUESTIONS, FORGETFUL. PT'S VITALS WITHIN NORMAL LIMITS EXCEPT SBP SLIGHTLY HIGH. PT HAD 2DEGREE TYPE TWO BLOCK ON MONITOR AND DR. ARCOS AWARE. PT RHYTHM CONTROLLED IN 50-70'S. PT HAD BED ALARM ON AND HAD ASSIST OF ONE TO PREVENT INJURY DUE TO FALLS. CARDIOLOGY CONSULT FOR TOMORROW. WILL CONT WITH POC.
[2018-07-22 19:10] VITALS: BP 152/68
[2018-07-23 03:57] VITALS: BP 136/74
[2018-07-23 05:14] VITALS: BP 145/93
[2018-07-23 07:40] VITALS: BP 178/90
[2018-07-23 11:35] VITALS: BP 179/71
[2018-07-23 15:45] VITALS: BP 161/77
--- NOTE | 2018-07-23 16:46 | NUR ---
assessment: cm REVIEWED CHART AND MET WITH PATIENT AT THE BEDSIDE. PT IS FROM [facility]. PT WAS ADMITTED WITH BRADYCARDIA. PT REPORTS HE LIVES AT HIS APT AND HAS HAD [facility] IN THE PAST BUT NOT CURRENTLY. PT REPORTS THAT HE AMBULATES INDEPENDENTLY. PT REPORTS BEING INDEPENDENT WITH ADLS. CM DISCUSSED ROLE AND THAT PHYSICAL THERAPY IS RECOMMENDING HH. PT STATING HE PREFERS TO USE [facility] AGAIN. CM CONTACTED [facility] TO NOTIFY AND FAXED REFERRAL. PLANS ARE FOR PATIENT TO DISCHARGE LIKELY TOMORROW BACK TO HIS [place] [facility] WITH [facility].
[2018-07-23 19:08] VITALS: BP 188/100
[2018-07-24 00:18] VITALS: BP 157/76
[2018-07-24 03:23] VITALS: BP 193/78
--- NOTE | 2018-07-24 05:53 | NUR ---
ASSUMED CARE AT 1900. PT AO X4. FLAT AFFECT. DENIES PAIN. ELEVATED BP.DR ARCOS NOTIFIED. ORDER FOR METOPROLOL GIVEN. PT IS BRADYCARDIC TO TYPE 1 HEART BLOCK. WILL CONTINUE TO FOLLOW POC.
[2018-07-24 07:20] VITALS: BP 178/78
[2018-07-24 09:27] LABS: HEMATOCRIT 45.2 % (42.0-52.0); MCH 29.3 pg (26.0-34.0); MCHC 34.9 g/dL (28.0-37.0); MCV 83.9 fL (80.0-100.0); RBC 5.38 mil/uL (4.50-6.00)
[2018-07-24 09:31] LABS: HEMOGLOBIN 15.8 gm/dL (14.0-18.0)
[2018-07-24 09:37] LABS: CALCIUM 8.7 mg/dL (8.5-10.1); CREATININE 1.1 mg/dL (0.7-1.3); POTASSIUM 3.2 mmol/L (3.5-5.1)
[2018-07-24 09:54] VITALS: BP 178/78
[2018-07-24 11:20] VITALS: BP 157/86
[2018-07-24] MEDS ORDERED: LEVAQUIN 500 M500 M1 PO (11:48)
[2018-07-24 13:33] VITALS: BP 178/78
--- NOTE | 2018-07-24 15:50 | NUR ---
PT. DISCHARGING TODAY BACK TO [facility] [place] WITH [facility]. FAXED DC ORDERS/SUMMARY TO [facility] SPOKE WITH [facility] THEY ARE HAVING PROBLEMS WITH THEIR FAX MACHINE AND IF DC ORDERS NOT RECEIVED BY 1699 TODAY SHE WILL PICK THEM UP IN THE AM HERE AT [facility] OFFICE. DCP ARRANGED TRANSPORT VIA [facility] FOR [id number] TODAY. NOTIFIED UNIT OF TIME OF TRANSPORT.
--- NOTE | 2018-07-24 16:14 | NUR ---
AA0X3 CONFUSED AT TIMES. REPORTS KIDS OUTSIDE OF WINDOW - NO CHILDREN SEEN. REORIENTS EASLIY. FLAT AFFECT. GOOD APPETITE. VOIDS WITHOUT DIFFICULTY. PLAN IS TO D/C BACK TO [place] THIS AFTERNOON.
--- NOTE | 2018-07-24 16:16 | NUR ---
patient has orders to discharge back to [facility] today with home health. [employer] [facility] FAXED HH INFORMATION. PREET SPOKE WITH LIASON FROM [facility] TO SEE IF THEY COULD ARRANGE TRANSPORTATION AND SHE STATES THEIR BUS IS NOT AVAILABLE. CM SPOKE WITH DIRECTOR AND APPROVAL TO ARRANGE TRANSPORTATION. CM NOTIFIED [employer]IO REPAIR[employer] WHO ARRANGED. CM LEFT VM FOR PATIENT SON TO NOTIFY OF DISCHARGE.
== END 2018-07-24 17:30 | disposition home health service (06) | DRG 308 ==
LOC: ER 10:13 → EROBS 12:50 → 2N 12:50
PROVIDERS: Nurse Practitioner Gerontology; Physician Assistant; ADMIT Family Medicine
DX: I44.1 Atrioventricular block, second degree (principal); J18.9 Pneumonia, unspecified organism; N17.9 Acute kidney failure, unspecified; I10 Essential (primary) hypertension; I95.1 Orthostatic hypotension; S09.90XA Unspecified injury of head, initial encounter; N40.0 Benign prostatic hyperplasia without lower urinary tract symptoms; F32.9 Major depressive disorder, single episode, unspecified; F41.9 Anxiety disorder, unspecified; D72.829 Elevated white blood cell count, unspecified; Z90.49 Acquired absence of other specified parts of digestive tract; Z88.0 Allergy status to penicillin; Z88.8 Allergy status to other drugs, medicaments and biological substances; Z87.891 Personal history of nicotine dependence; X58.XXXA Exposure to other specified factors, initial encounter; Y93.89 Activity, other specified; Y92.89 Other specified places as the place of occurrence of the external cause; Y99.8 Other external cause status
CPT/HCPCS: 10081

== ENCOUNTER 2019-03-05 18:26 | Inpatient (IN) | payer OTHER ==
[~2019-03-05] VITALS: Ht 175.3 cm; Wt 70.9 kg
[~2019-03-05 18:26] MED LIST changes: +BUSPIRONE HCL10 MG PO; +LEVAQUIN 500 M500 M1 PO; +NORVASC5 MG PO; +SEROQUEL XR 30300 M1 PO; +TOPROL XL25 MG PO; +TRAZODONE HCL50 MG PO; +ZOLOFT50 MG PO
[2019-03-05 18:49] VITALS: BP 213/115
[2019-03-05 19:19] LABS: ABSOLUTE NEUTROPHILS 6.1 thou/uL (1.4-8.2); EOSINOPHILS 1.9 % (0.0-3.0); HEMATOCRIT 47.1 % (42.0-52.0); HEMOGLOBIN 16.4 gm/dL (14.0-18.0); MCH 28.8 pg (26.0-34.0); MCHC 34.7 g/dL (28.0-37.0); MONOCYTES 5.2 % (1.0-8.0); PLATELET COUNT 260 thou/uL (150-400); POLYS 77.9 % (36.0-66.0); RBC 5.67 mil/uL (4.50-6.00); RDW 16.4 % (10.5-14.5); WBC 7.8 thou/uL (4.0-11.0)
[2019-03-05 19:27] LABS: ANION GAP 4 mmol/L (7-16); BUN 20 mg/dL (7-18); CALCIUM 8.9 mg/dL (8.5-10.1); CHLORIDE 103 mmol/L (98-107); CO2 30 mmol/L (21-32); CREATININE 1.1 mg/dL (0.7-1.3); GLUCOSE 95 mg/dL (74-106); POTASSIUM 4.1 mmol/L (3.5-5.1); SODIUM 137 mmol/L (136-145)
[2019-03-05 19:37] LABS: ALBUMIN 3.8 g/dL (3.4-5.0); SGOT 22 U/L (15-37); SGPT 11 U/L (30-65); TOTAL BILIRUBIN 0.4 mg/dL (<0.1-1.0); TOTAL PROTEIN 7.7 g/dL (6.4-8.2); TROPONIN-I <0.06 ng/mL (<0.06)
[2019-03-05 19:41] LABS: URINE BILIRUBIN NEGATIVE (Negative); URINE BLOOD TRACE (Negative); URINE CLARITY CLEAR; URINE COLOR YELLOW; URINE GLUCOSE-RANDOM* NEGATIVE (Negative); URINE KETONES NEGATIVE (Negative); URINE LEUKOCYTES-REFLEX NEGATIVE (Negative); URINE NITRITE-REFLEX NEGATIVE (Negative); URINE PROTEIN (DIPSTICK) TRACE (Negative); URINE SPECIFIC GRAVITY >= 1.030 (1.005-1.035); URINE UROBILINOGEN 0.2 E.U./dl (0.2-1.0)
[2019-03-05 20:51] VITALS: BP 202/99
--- NOTE | 2019-03-05 20:55 | NUR ---
ED NURSE CALLED TO GIVE REPORT TO INPATIENT NURSE, WAS TOLD NURSE WAS IN A PT R OOM AND ED NURSE WILL HAVE TO WAIT FOR A CALL TO GIVE REPORT
[2019-03-05 21:47] VITALS: BP 189/105
[2019-03-05 23:46] VITALS: BP 161/89
[2019-03-06] VITALS (7 sets, daily range): BP systolic 146–184; BP diastolic 77–110
--- NOTE | 2019-03-06 05:17 | NUR ---
PATIENTS CARES WERE ASSUMED AFTER A TRANSFER FROM ER. PATIENT WAS ASSESSED AND MEDS ORDERED, PATIENT WAS ADMITTED TO THE FLOOR. DR. ARCOS WAS CALLED TO ORDER HOME MEDS. PATIENT WAS GIVEN THREE ROUNDS OF LABATOLOL 10MG IN ER. THE PATIENTS HEART RATE ID NOW IN 37. B/P WAS CHECKED FRQUENTLY AND IN NOW STABLE. VS ARE AT 0400 182/80, REP 12, 98% ON RA, HEART RATE IS 37. BELIEVE THIS MAY BE A RESIDULE EFFECT ROM ALL THE DOSING DONE. HOURLY ROUNDING DONW THE BED IS IN A LOW AND LODCKED POSITION
--- NOTE | 2019-03-06 08:08 | EKG ---
[address] [address] ELECTROCARDIOGRAM REPORT Name: NALDO GAMEZ Room #: 219-P ADM IN M.R.#: [id number] Admission: 03/05/19 Attend Phys: Salomon Saravia MD Discharge: Date of : 43 Report #: [id number] THIS REPORT FOR: //name// [facility] ED Test Date: 2019-03-05 Test Time: 19:19:49 Pat Name: NALDO GAMEZ Department: Room: 219 Gender: M Adzing And Boring Machine Operator: morena : 1945 Requested By: Bren Perez Order Number: [id number] MD: Mark Russell Measurements Intervals [place] Rate: 64 P: -11 [place]: 281 QRS: 25 QRSD: 84 T: 54 QT: 421 QTc: 435 Interpretive Statements Sinus rhythm Prolonged [place] interval Compared to ECG 07/21/2018 10:20:44 ST (T wave) deviation no longer present Electronically Signed On 03-06-2019 8:08:30 CDT by Mark Russell [email or web address] <ELECTRONICALLY SIGNED> By: Mark Russell MD 03/06/19807 18 18 Mark Russell MD /CAESAR
--- NOTE | 2019-03-06 08:11 | EKG ---
[address] [place] [address] ELECTROCARDIOGRAM REPORT Name: NALDO GAMEZ Room #: 219-P ADM IN M.R.#: [id number] Admission: 03/05/19 Attend Phys: Salomon Saravia MD Discharge: Date of : 43 Report #: [id number] THIS REPORT FOR: //name// [facility] Test Date: 2019-03-06 Test Time: 07:05:50 Pat Name: NALDO GAMEZ Department: Room: 219 P Gender: M Security Systems Engineer: Nicolasa LITTLE : 1945 Requested By: Salomon Saravia Order Number: [id number] MD: Jerod Morrow Measurements Intervals [place] Rate: 64 P: -57 ME: 328 QRS: 32 QRSD: 87 T: 78 QT: 454 QTc: 469 Interpretive Statements Sinus rhythm with second degree AV block, [place] I Compared to ECG 07/21/2018 10:20:44 [place] type I (Wenckebach) now present Electronically Signed On 03-06-2019 8:10:52 CDT by Jerod Morrow [email or web address] <ELECTRONICALLY SIGNED> By: Jerod Morrow MD, [facility] 03/06/19 0810 4 Jerod Morrow MD, [facility] /EPI
--- NOTE | 2019-03-06 13:54 | EKG ---
[address] [address] ELECTROCARDIOGRAM REPORT Name: NALDO GAMEZ Room #: 219-P ADM IN M.R.#: [id number] Admission: 03/05/19 Attend Phys: Salomon Saravia MD Discharge: Date of : 43 Report #: [id number] THIS REPORT FOR: //name// [facility] Test Date: 2019-03-06 Test Time: 00:28:57 Pat Name: NALDO GAMEZ Department: Room: 219 P Gender: M Plastic Parts Designer: : 1945 Requested By: Salomon Saravia Order Number: [id number] MD: Mark Russell Measurements Intervals [place] Rate: 38 P: -28 [place]: 231 QRS: 51 QRSD: 98 T: 80 QT: 487 QTc: 388 Interpretive Statements Sinus bradycardia Atrial premature complexes Prolonged [place] interval Compared to ECG 03/05/2019 19:19:49 Atrial premature complex(es) now present Sinus rhythm no longer present Electronically Signed On 03-06-2019 13:54:40 CDT by Mark Russell [email or web address] <ELECTRONICALLY SIGNED> By: Mark Russell MD 03/06/19 1354 0028 0028 Mark Russell MD /EPI
--- NOTE | 2019-03-06 14:26 | 2DMMODE ---
[facility] [place] [address] 2 D/M-MODE ECHOCARDIOGRAM Name: NALDO GAMEZ Room #: 219-P [facility] IN [facility].#: [id number] Admission: 03/05/19 Attend Phys: Salomon Saravia, Discharge: Date of : 43 Report #: [id number] THIS REPORT FOR: //name// APPROVED REPORT Study performed: 03/06/2019 13:12:10 EXAM: Comprehensive 2D, Doppler, and color-flow Echocardiogram Patient Location: Echo lab Status: routine BSA: 1.86 HR: 58 bpm BP: 176/110 mmHg Rhythm: Bradycardia, Irregular Other Information Study Quality: Good Indications Hypertension/HDD EKG changes- Heart Block 2D Dimensions RVDd: 36.14 mm IVSd: 14.44 (7-11mm) LVOT Diam: 19.38 (18-24mm) LVDd: 45.19 mm PWd: 13.60 (7-11mm) Ascending Ao: 37.00 (22-36mm) LVDs: 25.91 (25-40mm) IVC: 13.00 mm Volumes Left Atrial Volume (Systole) Single Plane 4CH: 64.80 mL Single Plane 2CH: 84.98 mL LA ESV Index: 45.00 mL/m2 Aortic Valve AoV Peak Solomon.: 1.32 m/s AO Peak Gr.: 9.62 mmHg LVOT Max P.26 mmHg LVOT Max V: 1.03 m/s DARREN Vmax: 2.29 cm2 Mitral Valve E/A Ratio: 0.8 MV Decel. Time: 309.38 ms [facility] [address] [address] 2 D/M-MODE ECHOCARDIOGRAM Name: NALDO GAMEZ Room #: 219-P [facility] IN ..#: [id number] Admission: 03/05/19 Attend Phys: Salomon Saravia, Discharge: Date of : 43 Report #: [id number] E Max Solomon.: 0.66 m/s MV A Solomon.: 0.80 m/s MV PHT: 89.72 ms IVRT: 92.27 ms Pulmonary Valve PV Peak Solomon.: 1.37 m/s PV Peak Gr.: 7.47 mmHg Tricuspid Valve TR Peak Solomon.: 2.87 m/s RAP Estimate: 10.00 mmHg TR Peak Gr.: 33.04 mmHg PA Pressure: 43.00 mmHg Left Ventricle The left ventricle is normal size. Mild to moderate concentric left ventricular hypertrophy. The left ventricular systolic function is normal. The left ventricular ejection fraction is within the normal range. LVEF is 55-60%. Mild diastolic dysfunction is present (impaired relaxation pattern). Right Ventricle The right ventricle is normal size. Right ventricular systolic function is grossly normal. Atria Left atrium is dilated. The right atrium size is normal. Aortic Valve Aortic valve is thickened but has adequate excursion. Mild aortic regurgitation. There is no aortic valvular stenosis. Mitral Valve The mitral valve is normal in structure. Mild mitral regurgitation. No evidence of mitral valve stenosis. Tricuspid Valve The tricuspid valve is normal in structure. Mild tricuspid regurgitation. Estimated PAP is 43mmHg. Pulmonic Valve Pulmonic valve is not well visualized. Mild pulmonic regurgitation. Great Vessels The aortic root is normal in size. IVC is normal in size and collapses <50% with inspiration. [facility] [place] [address] 2 D/M-MODE ECHOCARDIOGRAM Name: NALDO GAMEZ Room #: 219-P ADM IN M.R.#: [id number] Admission: 03/05/19 Attend Phys: Salomon Saravia, Discharge: Date of : 43 Report #: [id number] Pericardium There is no pericardial effusion. <Conclusion> The left ventricle is normal size. LVEF is 55-60%. Left atrium is dilated. Aortic valve is thickened but has adequate excursion. Mild aortic regurgitation. The mitral valve is normal in structure. Mild mitral regurgitation. The tricuspid valve is normal in structure. Mild tricuspid regurgitation. Estimated PAP is 43mmHg. Pulmonic valve is not well visualized. Mild pulmonic regurgitation. There is no pericardial effusion. <ELECTRONICALLY SIGNED> By: Melecio Myers MD 03/06/19 1425 1425 1425 Melecio Myers MD /INF
--- NOTE | 2019-03-06 16:50 | NUR ---
ASSESSMENT CHARTED. PT ALERT AND ORIENTED. HAD HIGH BP AND LOW HR. DR. ARCOS AWARE. CARDIOLOGY CONSULTED. ORDERS NOTED. NPO AFTER MIDNIGHT. SCHEDULED PAIN MED GIVEN FOR FOSTER. NO CARDIAC DISTRESS NOTED. WILL CONTINUE TO MONITOR.
[2019-03-07 05:38] VITALS: BP 179/65
--- NOTE | 2019-03-07 06:23 | NUR ---
PATIENTS CARE WAS ASSUMED AT SHIFT CHANGE. PATIENT WAS ASSESSED AND MEDS WERE PASSED. HOURLY ROUNDING DONE. PATIENT HAS BEEN NPO SINCE MIDNIGHT WITH POSSIBLE PROCEDURE TODAY. THE BED ALARM IS ON AND THE BED IS IN A LOW AND LOCKED POSITION.
[2019-03-07 07:55] VITALS: BP 178/90
[2019-03-07 11:56] VITALS: BP 143/88
--- NOTE | 2019-03-07 15:16 | NUR ---
PT ALERT AND ORIENTED. RECEIVED SCHEDULED PAIN MED FOR FOSTER WITH PARTIAL RELIEF. NPO AFTER MIDNIGHT FOR POSSIBLE PACEMAKER PLACEMENT IN AM. NO CONCERNS AT THIS TIME. WILL CONTINUE TO MONITOR.
[2019-03-07 16:44] VITALS: BP 146/87
--- NOTE | 2019-03-07 17:05 | NUR ---
INITIAL ASSESSMENT: Consult received. PEDRO reviewed chart and spoke with nursing and attending physician. Pt was admitted from home due to hypertensive urgency/Headache. Pt is scheduled to have a pacemaker placed tomorrow. Pt with hx of HTN/memory loss. Pt may not be taking his medications correctly. PEDRO met with pt at bedside. Introduced role of SW. Pt is alert/orientated to self, place and time. Pt is aware that he will be having a pacemaker placed tomorrow. Pt was living at [facility] until about three weeks ago. Pt moved back to his home. Pt states he knows that he should not be living at home alone any longer. Pt's son, Jorge L, lives in [place] and does not visit pt regularly. Pt has a brother who lives in [place], but is unable to assist pt. Pt's neighbors have helped him in the past. Pt states that his neighbors do not know that he is back home, so unsure if they will be able to help him. Pt does not drive. Pt reports he has three levels in his home. His bedroom is on the second level. He is able to navigate the stairs up to the second level. Pt does not use any DME. Pt states that he has HH caregiver coming in and thinks it is with [facility]. Pt's PCP is Dr. Saravia. SW offered to contact his son to discuss discharge plan. Pt is agreeable. SW spoke with Jorge L via phone. Lengthy discussion with pt's son regarding discharge plans. Pt's son states that he had not been in contact with pt until 3 weeks ago when he went back home. He did not speak with pt while he was at [facility]. Per Jorge L, they are going to sell pt's home and have an estate sell to help pt move into another AL/IL facility. Pt does not have the funds at this time to pay for a facility. Pt's son has been in contact with Ernesto Dasilva for private duty care. Per Jorge L, pt was hotlined and he spoke with a storehouse clerk at [facility]. Pt does not have a DPOA in place. Jorge L is agreeable to help with coordination of discharge. Jorge L asked about post-acute placement. PEDRO explained need for therapy evals and insurance authorization. SW discussed alternative options such as respite in a LTC or AL facility. Pt's son is agreeable. Options discussed. No preference voiced. PEDRO reached out to [facility] to see if they would be able to accept pt in SNF or for respite care. Therapy evals ordered today. Will fax referral when evals are available. PEDRO contacted [facility] liaison. PEDRO updated attending physician. PEDRO is following to assist as needed with discharge planning.
[2019-03-07 20:31] VITALS: BP 144/87
[2019-03-08 03:54] VITALS: BP 152/88
[2019-03-08 05:09] LABS: ABSOLUTE NEUTROPHILS 5.3 thou/uL (1.4-8.2); BASOPHILS 1.2 % (0.0-2.0); EOSINOPHILS 4.5 % (0.0-3.0); HEMATOCRIT 47.5 % (42.0-52.0); HEMOGLOBIN 15.8 gm/dL (14.0-18.0); MCH 27.8 pg (26.0-34.0); MCHC 33.3 g/dL (28.0-37.0); MCV 83.4 fL (80.0-100.0); MONOCYTES 6.5 % (1.0-8.0); PLATELET COUNT 265 thou/uL (150-400); POLYS 67.8 % (36.0-66.0); RDW 16.2 % (10.5-14.5); WBC 7.9 thou/uL (4.0-11.0)
[2019-03-08 05:33] LABS: ALBUMIN 3.2 g/dL (3.4-5.0); CALCIUM 8.6 mg/dL (8.5-10.1); CREATININE 1.3 mg/dL (0.7-1.3); TOTAL BILIRUBIN 0.4 mg/dL (<0.1-1.0); TOTAL PROTEIN 6.8 g/dL (6.4-8.2)
--- NOTE | 2019-03-08 07:27 | NUR ---
PATIENTS CARE WAS ASSUMED AT SHIFT CHANGE. PATIENT WAS ASSESSED AND MEDS WERE PASSED. PATIENT STILL C/O A HEAD ACHE, HOWEVER THE PAIN IS LESS NOW. STAYS AT 2-/10 AND TYLENOL IS GIVEN. THE 0100 DOSE IS NOT GIVEN DUE TO PATIENT DOES NOT WANT TO BE WOKE UP FOR THE TYLENOL. HOURLY ROUNDS WERE DONE. THE BED IS IN A LOW AND LOCKED POSITION.
--- NOTE | 2019-03-08 08:28 | NUR ---
ORDERS RECEIVED FOR CLINICAL BEDSIDE SWALLOW EVALUATION AND COGNITIVE/COMMUNICATION EVALUATION TO DETERMINE APPROPRIATE POST ACUTE CARE NEEDS. BASED ON CHART REVIEW, MEDICAL HISTORY AND RN REPORT, CLINICAL BEDSIDE SWALLOW EVALUATION NOT DEEMED APPROPRIATE; SWALLOW FUNCTION WFL. PALLETISER OPERATOR TO ADDRESS COGNITIVE/COMMUNICATION AND MEMORY DEFICITS VIA FORMAL EVALUATION DEEMED APPRORPRIATE TO EVALUATE. DISCHARGE RECOMMENDATIONS TO BE MADE PENDING RESULTS OF EVALUATION.
[2019-03-08 15:00] VITALS: BP 151/101
--- NOTE | 2019-03-08 15:15 | NUR ---
ASSESSMENT CHARTED. PT ALERT AND ORIENTED. HAD PACEMAKER PLACEMENT THIS AM. PACEMAKER INCISION C/D/I. NO HEMATOMA NOTED. POST OP INSTRUCTIONS GIVEN TO PT. PT VERBERLISED UNDERSTANDING. WILL CONTINUE TO MONITOR.
[2019-03-08 16:00] VITALS: BP 175/76
--- NOTE | 2019-03-08 16:15 | NUR ---
FAXED RE[facility]ERRAL TO [facility] SPOKE WITH MISSAEL IN INTAKE SHE RECEIVED REFERRAL AND CAN ACCEPT AND FAXED DC ORDERS/SUMMARY SPOKE WITH INTAKE THEY RECEIVED DC ORDERS AND WILL NOTIFY PT TIME OF VISITS.
--- NOTE | 2019-03-08 16:25 | CATHLAB ---
[facility] [address] [place] [address] INVASIVE PROCEDURE REPORT Name: NALDO GAMEZ Room #: 219-P ADM IN ..#: [id number] Admission: 03/05/19 Attend Phys: Salomon Saravia, Discharge: Date of : 43 Report #: [id number] THIS REPORT FOR: //name// APPROVED REPORT Study performed: 03/08/2019 12:04:30 Patient Status: In-Patient Room #: 219 Event Personnel: Melecio Myers Clerical Adjudicator, Diana Hernandez RTR, WATER JET LOOM FIXER Monitor, Kylah Rubi RN, Ani Childers RTR Scrub Exam: Insertion of Dual Chamber Permanent Pacemaker The patient is a 74 year-old male with a history of second-degree type II block and episodes of lightheadedness and near syncope. Conscious Sedation Versed 3.0 mg Demerol IV 25 mg Implanted Devices: [employer]: Generator-Reference # [id number]; SN: [id number]; Use before: 2020-09-04 [employer]: RA Lead-Reference # [id number]; SN: [id number]; Use before: 2022-02-04 [employer]: RV Lead-Reference # [id number]-58; SN: [id number]; Use before: 2022-01-05 Procedure The patient underwent informed consent. We discussed the details of the procedure including the risks, which include, but not limited to bleeding, infection, vascular damage, cardiac perforation, and pneumothorax. He understood these risks and was willing to proceed. As such, he was brought to the EP/Cardiac Catheterization laboratory in a fasting and sedated state and prepped and draped in a The patient underwent conscious sedation, with no related complications. The patient was brought to the EP/Cardiac Catheterization laboratory and the left chest and shoulder were prepped and draped in a sterile manner. The left subclavian region was infiltrated with 2% Lidocaine subcutaneous anesthesia. A transverse incision was made in the left upper chest cavity. The subcutaneous pocket was formed via blunt dissection. Percutaneous venous access was achieved and an introducer sheath was inserted into [address] [address] INVASIVE PROCEDURE REPORT Name: NALDO GAMEZ Room #: 219-P [facility] IN [facility]#: [id number] Admission: 03/05/19 Attend Phys: Salomon Saravia, Discharge: Date of : 43 Report #: [id number] the left Subclavian vein. Sheaths were positions using the modified Seldinger technique Through the introducer sheaths the atrial and ventricular lead wires were positioned in the right atrial appendage and right ventricular apex respectively. Utilizing fluoroscopic guidance, the atrial and ventricular lead wires were advanced over the wires and positioned in the right atria and right ventricle respectively. Capturing and sensing thresholds were verified. 1. No venogram was performed Electrode Parameters P Wave: 2 R Wave: 12 Atrial Threshold: 1.0 @ 0.5 Ventricular Threshold: 1.2 @ 0.5 Atrial Resistance: 630 Ventricular Resistance: 950 Dual Chamber The atrial and ventricular leads were then secured using 2O nonabsorbable sutures. The subcutaneous pocket was irrigated with vancomycin antibiotic solution.The atrial and ventricular leads were attached to the appropriate receptacles on the pulse generator and set screws firmly tightened to insure adequate contact and stability. Complications The patient tolerated the procedure well and there were no complications associated with the procedure. Findings Specimens Removed: No Conclusion 1. Successful implantation of a [employer] dual-chamber pacemaker Recommendations 1. Routine post pacemaker implantation protocol <ELECTRONICALLY SIGNED> By: Melecio Myers MD 03/08/19 1625 1625 1625 Melecio Myers MD /INF
--- NOTE | 2019-03-08 16:26 | NUR ---
FAXED REFERRAL TO [facility] SPOKE WITH MISSAEL IN INTAKE THEY RECEIVED REFERRAL AND CAN ACCEPT. ANTICIPATE DC TOMORROW 03/09 IF PT DISCHARGES FAX DC ORDERS/SUMMARY TO [phone] AND CALL [phone] TO CONFIRM DC.
--- NOTE | 2019-03-08 16:53 | NUR ---
Dc plan at this time is home with resumption of [facility]. HCR angela does not feel they can offer AL or SNF to the pt. The pt prefers to return home at dc. Pacemaker placed today. Possible wkend dc. Wkend staff to fax dc orders and call the hh agency to confirm.
[2019-03-08 19:48] VITALS: BP 162/104
[2019-03-09 00:48] VITALS: BP 169/93
[2019-03-09 04:29] VITALS: BP 189/106
--- NOTE | 2019-03-09 05:59 | NUR ---
ASSESSMENT DOCUMENTED.PT BEEN RESTING IN NO ACUTE DISTRESS.S/P PACEMAKER PLACEMENT.LEFT INCISION COVERED W/DRESSING CDI.IMMOBILZER TO LEFT ARM IN PLACE.PT EDUCATED ON POST PACEMAKER PRECAUTIONS,VOICED UNDERSTANDING.PT CONCERNED ON DISCHARGE PROCESS,VOICING CONCERNS OF HIM GOING HOME BY HIMSELF.MORTGAGE PROCESSING MANAGER FOLLOWING PATIENT.PT WANTS TO GO TO SNF FOR FEW DAYS IF POSSIBLE,WILL FOLLOW UP WITH MORTGAGE PROCESSING MANAGER.PT LIVES INDEPENDENTLY AND NOW FEELS THAT HE WILL NEED HELP FOR FEW DAYS/WEEKS W/ADLS.DENIES PAIN OR ANY OTHER NEEDS.EMOTIONAL SUPPORT PROVIDED.OTHERWISE PT STATES THAT HE FEELS WELL AT THIS TIE.WILL CONT TO MONITOR PER POC.
[2019-03-09 07:08] VITALS: BP 189/99
[2019-03-09 11:56] VITALS: BP 155/91
[2019-03-09 15:57] VITALS: BP 145/101
--- NOTE | 2019-03-09 16:53 | NUR ---
PATIENT IS AOX4 TODAY. HE WAS QUITE FORGETFUL AND SLOW WITH HIS THOUGHTS IN THE BEGINNING OF THE SHIFT. THE DAY PROGRESSED HE SEEMED TO REGAIN BETTER THOUGHT PROCESSING. PATIENT WAS UP TO THE BR WITH STAND-BY ASSIST ALTHOUGH HE WAS STILL RATHER WOBBLY. HE CLEANED HIMSELF UP IN THE BATHROOM AND HAD A COMPLETE BED CHANGE BY RN. pATIENT COMPLAINED OF HEADACHE IN THE AM AND WAS GIVEN TYLENOL. NO FURTHER COMPLAINTS OF HEADACHE. BP WAS WELL CONTROLLED TODAY. PATIENT DOES NOT FEEL SAFE GOING HOME AND WOULD PREFER SNF IF HE QUALIFIES.
[2019-03-09 20:09] VITALS: BP 159/94
--- NOTE | 2019-03-10 02:34 | NUR ---
ASSESSMENT DOCUMENTED.PT BEEN RESTING IN NO ACUTE DISTRESS.A/OX4.VSS.S/P PACEMAKER PLACEMENT.INCISION TO LEFT CHEST COVERED WITH STERI STRIPS.DENIES PAIN.UP WITH STB TO BR.ANTICIPATING DISCHARGE TOMORROW.WILL CONT TO MONITOR PER POC.
[2019-03-10 05:50] VITALS: BP 146/89
--- NOTE | 2019-03-10 10:37 | NUR ---
ASSUMED CARE AT 0700, SHIFT ASSESSMENT DONE, MEDS GIVEN, VSS. DENIES PAIN, NAUSEA, VOMITING. UP WITH STANDBY, ROOM AIR. PACEMAKER SITE TO LEFT CHEST CLEAN, DRY, INTACT, STERISTRIPS IN PLACE. PT WANTS TO GO TO A FACILITY VERSUS GOING BACK HOME [facility]. WILL CONTINUE TO ASSESS AND ASSIST WIT DISCHARGE PLANNING NEEDED.
--- NOTE | 2019-03-10 11:15 | EKG ---
[address] [place] [address] ELECTROCARDIOGRAM REPORT Name: NALDO GAMEZ Room #: 219-P ADM IN M.R.#: [id number] Admission: 03/05/19 Attend Phys: Salomon Saravia MD Discharge: Date of : 43 Report #: [id number] THIS REPORT FOR: //name// [facility] Test Date: 2019-03-08 Test Time: 08:05:59 Pat Name: NALDO GAMEZ Department: Room: 219 P Gender: M Travel Registered Nurse Nicu: Nicolasa LITTLE : 1945 Requested By: Lashell Posada Order Number: [id number] MD: Mark Russell Measurements Intervals [place] Rate: 63 P: 33 TX: 233 QRS: 41 QRSD: 83 T: 72 QT: 458 QTc: 469 Interpretive Statements Sinus rhythm Supraventricular bigeminy Prolonged [place] interval Borderline repolarization abnormality Compared to ECG 03/06/2019 07:05:50 Electronically Signed On 03-10-2019 11:15:38 ASSOCIATE PROFESSOR OF COMMUNICATION by Mark Russell [email or web address] <ELECTRONICALLY SIGNED> By: Mark Russell MD 03/10/19 1115 4 4 Mark Russell MD /EPI
[2019-03-10 13:05] VITALS: BP 157/95
[2019-03-10 16:10] VITALS: BP 159/89
[2019-03-10 19:41] VITALS: BP 152/82
[2019-03-11 04:44] VITALS: BP 131/91
[2019-03-11 08:19] VITALS: BP 156/87
[2019-03-11] MEDS ORDERED: NIFEDIPINE ER30 M1 PO (08:47)
--- NOTE | 2019-03-11 12:36 | NUR ---
PATIENT WITH DC ORDERS FOR POST ACUTE CARE. PATIENT REPORTS HE LIVES ALONE IN HOME WITH MULTIPLE STEPS. HE REPORTS HIS SON LIVES IN [place] AND HE DOES NOT HAVE FAMILY IN [place]. HE REPORTS HE IS INTERESTED IN POST ACUTE CARE. GAVE HIM ADVANTRA LIST TO REVIEW. CHECKED WITH PATIENT TWICE TODAY AND HE HAS NOT MADE A DECISION ON POST ACUTE. PATIENT HAS LIVED AT [facility] IN THE PAST.
--- NOTE | 2019-03-11 12:48 | NUR ---
ASSUMED CARE AT 0700, SHIFT ASSESSMENT DONE, MEDS GIVEN, VSS. DENIES PAIN, NAUSEA, VOMITING. ROOM AIR, NSR ON TELE. DISCHARGE ORDER RECEIVED FOR SKILLED PLACEEMENT. AWAITING FOR AUTH. WILL CONTINUE TO ASSESS AND ASSIST WITH ADLs NEEDED.
[2019-03-11 16:36] VITALS: BP 145/83
--- NOTE | 2019-03-11 17:08 | NUR ---
FAXED REFERRAL TO [facility] SPOKE WITH [place] IN ADM SHE RECEIVED REFERRAL AND CAN ACCEPT PT AT DC, BUT THEY ONLY HAVE A SEMI PVT RM AVAILABLE AND THEY WILL PUT HIM ON THE LIST FOR A PVT RM SHE HAS SEVERAL DISCHARGES THIS WEEK AT FACILITY.
--- NOTE | 2019-03-11 17:12 | NUR ---
spoke with patient alerted [facility] has a semipvt room and he can be on wait list for pvt room at [facility]. Patient agreeable for semipvt. They are seeking auth. Left message for son to call casemgt.
[2019-03-11 20:26] VITALS: BP 146/81
--- NOTE | 2019-03-12 03:13 | NUR ---
ASSUMED PT CARE AT 1900. PT VSS. PT REMOVED FROM TELE PER ORDERS. PT IS AWAITING DISCHARGE IN MORNING TO SKILLED FACILITY PER ORDERS. PT SLEPT THRU NIGHT. PT HAD NO C/O PAIN OR SOB. WILL CONTINUE TO MONITOR PER POC.
[2019-03-12 06:36] VITALS: BP 160/83
[2019-03-12 08:09] VITALS: BP 171/86
--- NOTE | 2019-03-12 09:55 | NUR ---
ASSUMED CARE AT 0700, SHIFT ASSESMENT DONE, MEDS GIVEN, VSS. A&O*4, UP AD HEMA, DENIES PAIN, NAUSEA, VOMITING. WILL CONTINUE TO ASSESS AND ASSIST WITH ADLs NEEDED.
--- NOTE | 2019-03-12 16:47 | NUR ---
no auth for patient for skilled care.
[2019-03-12 17:24] VITALS: BP 136/98
--- NOTE | 2019-03-12 19:45 | NUR ---
ORDER RECEIVED TO TRANSFER PATIENT TO ROOM 442. REPORT WAS CALLED TO NIGHT NURSE GARTH. AFTER REPORT, THIS NURSE WAS HELPING PATIENT TO PACK UP ALL HIS BELONGINGS WHEN PT INDICATED THAT HE IS MISSING HIS BILLFOLD AND HOUSE KEYS. SO SECURITY WAS CALLED AND THEY INFOMRED THEY DO NOT HAVE ANYTHING IN THE LOCKER NOR IN THE LOST AND FOUND. PT ALSO DOES NOT HAVE ANY PT BELONGINGS ENVELOPE INDICATING HE HAS SOMETHING WITH SECURITY. ADMISSION NOTE WAS CHECKED AND IT INDICATES THAT HE DID NOT BRING IN ANY BILLFOLD OR HOUSE KEYS. TOLL TRANSMISSION WORKER WAS NOTIFIED AND NIGHT NURSE ON 4TH FLOOR GARTH IS ALSO AWARE OF THIS SITUATION.
[2019-03-12 20:30] VITALS: BP 134/89
--- NOTE | 2019-03-13 03:37 | NUR ---
ASSUMED PT CARE ON 03/12/19. PT WAS TRANSFERED TO DURING SHIFT CHANGE. MY PRECEPTOR AND MYSELF WERE TOLD DURING REPORT THAT THE PT SAYS THAT HE IS MISSING HIS WALLET AND HOME KEYS. WE HAVE NOT SEEN ANY OTHER BELONGINGS OTHER THAN WHAT WAS IN THE BAG IN THE ROOM CLOSET. PT SAID THAT HE HAS A HEADACHE. PT TOOK ACETAMINOPHEN WITH HIS SCHEDULED MEDICATION. SOON I FINISHED HIS REASSESSMENT HE WAS READY TO USE THE RESTROOM. PT IS NOW RESTING IN ROOM. WILL CONITNUE TO MONITOR.
[2019-03-13 03:40] VITALS: BP 161/88
[2019-03-13 08:03] VITALS: BP 148/82
[2019-03-13 09:30] VITALS: BP 148/82
--- NOTE | 2019-03-13 10:23 | NUR ---
Assess for length of stay. Admit with HTN urgency. Eating 100% of meals, no significant wt changes over 6 mo. Discharge pending soon. Low nutrition risk
--- NOTE | 2019-03-13 12:06 | NUR ---
Following for d/c planning needs. Received telephone call from online content coordinator at [facility]. She has received insurance authorization for skilled. Notified physician and he is agreeable with d/c plans. The [facility] online content coordinator will make w/c van transportation arrangements. Chart copied.
--- NOTE | 2019-03-13 14:48 | NUR ---
DISCHARGE PAPERS GONE OVER WITH PATIENT. SIGNED AND COPY IN CHART. REPORT GIVEN TO GRAZYNA AT [facility]ILLED [facility]ILITY. ALL BELONGINGS PACKED AND TO BE SENT WITH PATIENT. IV ACSESS DCD.
--- NOTE | 2019-03-13 15:31 | NUR ---
PT is A&OX3, PT'S BP has improved, pt's vs are stable, RN received order to D/C pt to [facility], pt has received d/c teaching, pt has understandered well, pt plan to d/c about 1600pm.pt denies pain and sob at this time.
--- NOTE | 2019-03-13 16:07 | NUR ---
RN has giving D/C report, trasportation mixing picker tender pt now.pt denies pain and sob .
== END 2019-03-13 16:11 | DRG 242 ==
LOC: ER 18:26 → EROBS 20:09 → 2N 20:09 → 4S 03-12 19:50
PROVIDERS: Nurse Practitioner; Nurse Practitioner Family; ADMIT Family Medicine
PROC: 0JH606Z Insertion of Pacemaker, Dual Chamber into Chest Subcutaneous Tissue and Fascia, Open Approach (ICD-10-PCS; principal; 2019-03-08)
PROC: 02HK3JZ Insertion of Pacemaker Lead into Right Ventricle, Percutaneous Approach (ICD-10-PCS; 2019-03-08)
PROC: 02H63JZ Insertion of Pacemaker Lead into Right Atrium, Percutaneous Approach (ICD-10-PCS; 2019-03-08)
DX: I45.5 Other specified heart block (principal); G93.41 Metabolic encephalopathy; I16.1 Hypertensive emergency; I44.1 Atrioventricular block, second degree; I16.0 Hypertensive urgency; N40.0 Benign prostatic hyperplasia without lower urinary tract symptoms; F32.9 Major depressive disorder, single episode, unspecified; F41.9 Anxiety disorder, unspecified; E78.5 Hyperlipidemia, unspecified; F03.90 Unspecified dementia, unspecified severity, without behavioral disturbance, psychotic disturbance, mood disturbance, and anxiety; I10 Essential (primary) hypertension; Z88.0 Allergy status to penicillin; Z79.899 Other long term (current) drug therapy; Z23 Encounter for immunization; Z88.8 Allergy status to other drugs, medicaments and biological substances; Z90.89 Acquired absence of other organs; Z80.9 Family history of malignant neoplasm, unspecified; Z87.891 Personal history of nicotine dependence
CPT/HCPCS: 10081; 10102; 10797

== ENCOUNTER 2019-05-10 19:05 | Inpatient (IN) | payer OTHER ==
[~2019-05-10] VITALS: Ht 175.3 cm; Wt 75.3 kg
[2019-05-10 19:15] VITALS: BP 178/110
[2019-05-10 19:37] LABS: ABSOLUTE NEUTROPHILS 6.1 thou/uL (1.4-8.2); EOSINOPHILS 2.1 % (0.0-3.0); HEMATOCRIT 46.4 % (42.0-52.0); HEMOGLOBIN 15.5 gm/dL (14.0-18.0); LYMPHOCYTES 15.5 % (24.0-44.0); MCH 27.8 pg (26.0-34.0); MCHC 33.5 g/dL (28.0-37.0); MONOCYTES 8.3 % (1.0-8.0); PLATELET COUNT 269 thou/uL (150-400); POLYS 73.1 % (36.0-66.0); RBC 5.59 mil/uL (4.50-6.00); RDW 15.6 % (10.5-14.5); WBC 8.3 thou/uL (4.0-11.0)
[2019-05-10 19:44] LABS: ANION GAP 5 mmol/L (7-16); BUN 21 mg/dL (7-18); CALCIUM 8.9 mg/dL (8.5-10.1); CHLORIDE 102 mmol/L (98-107); CO2 29 mmol/L (21-32); GLUCOSE 78 mg/dL (74-106); POTASSIUM 4.6 mmol/L (3.5-5.1); SODIUM 136 mmol/L (136-145)
[2019-05-10 19:50] LABS: APTT 31.7 Seconds (24.5-32.8); PROTIME 10.7 Seconds (9.3-11.4)
[2019-05-10 19:54] LABS: ALBUMIN 3.9 g/dL (3.4-5.0); SGOT 42 U/L (15-37); SGPT 18 U/L (30-65); TOTAL BILIRUBIN 0.8 mg/dL (<0.1-1.0); TOTAL PROTEIN 8.2 g/dL (6.4-8.2); TROPONIN-I <0.06 ng/mL (<0.06)
[2019-05-10 20:25] LABS: URINE BILIRUBIN NEGATIVE (Negative); URINE BLOOD NEGATIVE (Negative); URINE CLARITY CLEAR; URINE COLOR YELLOW; URINE GLUCOSE-RANDOM* NEGATIVE (Negative); URINE KETONES NEGATIVE (Negative); URINE LEUKOCYTES-REFLEX NEGATIVE (Negative); URINE NITRITE-REFLEX NEGATIVE (Negative); URINE PROTEIN (DIPSTICK) NEGATIVE (Negative); URINE UROBILINOGEN 0.2 E.U./dl (0.2-1.0)
[2019-05-10 20:34] LABS: AMP/METHAMP Negative (Negative); BARBITURATES Negative (Negative); BENZODIAZEPINES Negative (Negative); COCAINE Negative (Negative); METHADONE Negative (Negative); OPIATES Negative (Negative); PCP Negative (Negative)
[2019-05-10 21:19] VITALS: BP 178/110
[2019-05-10 22:15] VITALS: BP 170/104
[2019-05-10 22:41] VITALS: BP 188/100
[2019-05-10 23:47] VITALS: BP 160/90
[2019-05-11] VITALS (7 sets, daily range): BP systolic 127–186; BP diastolic 77–110
--- NOTE | 2019-05-11 00:12 | NUR ---
PT ADMITTED TO UNIT FROM ED. HTN SBP 180, PT LIVES AT HOME ALONE. NOTED TO BE LEANING TO THE RIGHT AND BACKWARDS WHILE WALKING. WAS WANDERING THE NEIGHBORHOOD LOOKING FOR ASSISTANCE NEIGHBOR HELPED PT RETURN HOME. PTS BROTHER AND SISTER IN LAW VISIT HIM DAILY. PT DOES NOT KNOW HIS HOME MEDICATIONS, PHARMACY LISTED IS CURRENT, BROTHER STATES PT WENT TO THIS AM AND HAD MED CHANGES, BUT THE DR WAS TRANSMITTING THEM TO THE PHARMACY AND BROTHER DOES NOT KNOW WHAT THEY ARE. PT SEES OUTPT DR PARKER GERONTOLOGY. PT HAD PACEMEAKER PLACED 2 MONTHS AGO. AV PACED. PT HAS FIELD STICK IV LAC, FLUIDS DCD BNP ELEVATED. PT REPORTS HEADACHE AND PRN TYLENOL PROVIDED ALONG WITH SNACK. SBP MANUAL 160, FIELD STAFF MANAGER NOTIFIED OF BP AND ORDER FOR MEDICATION PROVIDED. PT OX2-3, NOT TIME/YEAR, FORGETFUL. MED HX DEMENTIA, HTN. BED ALARM ON.
--- NOTE | 2019-05-11 01:33 | NUR ---
[employer] HOME ELECTRICAL FOREMAN NOTIFIED OF RECHECK SBP 175, NO NEW ORDERS.
--- NOTE | 2019-05-11 01:41 | NUR ---
MRI WILL BE ORDERED FOR AM R/O CVA, WILL HAVE DAY SHIFT FURTHER DETERMINE IF PACER IS COMPATIBLE WITH MRI.
--- NOTE | 2019-05-11 05:20 | NUR ---
PT AWAKE MOST OF THE NIGHT, ASLEEP THIS AM, NOT ABLE TO AWAKEN FOR AM BUSPAR.
--- NOTE | 2019-05-11 11:54 | EKG ---
[place] [address] [address] [facility] [place] [address] ELECTROCARDIOGRAM REPORT Name: NALDO GAMEZ Room #: 354-P ADM IN M.R.#: [id number] Admission: 05/10/19 Attend Phys: Jorge Guevara MD Discharge: Date of : 43 Report #: [id number] THIS REPORT FOR: //name// [facility] ED Test Date: 2019-05-10 Test Time: 19:48:25 Pat Name: NALDO GAMEZ Department: Room: 354 Gender: M Processing Inspector: ANIKA : 1945 Requested By: Dean Moreau Order Number: [id number] MD: Jerod Morrow Measurements Intervals [place] Rate: 67 P: -10 KY: 277 QRS: 18 QRSD: 86 T: -2 QT: 432 QTc: 456 Interpretive Statements Sinus rhythm Prolonged [place] interval Abnormal T, consider ischemia Compared to ECG 03/08/2019 08:05:59 No significant change was found Electronically Signed On 05-11-2019 11:54:06 E LEARNING DESIGNER by Jerod Morrow [email or web address] <ELECTRONICALLY SIGNED> By: Jerod Morrow MD, [facility] 05/11/19 1154 47 47 Jerod Morrow MD, [facility] /EPI
--- NOTE | 2019-05-11 11:54 | EKG ---
[place] [address] [facility] [place] [address] ELECTROCARDIOGRAM REPORT Name: NALDO GAMEZ Room #: 354-P ADM IN M.R.#: [id number] Admission: 05/10/19 Attend Phys: Jorge Guevara MD Discharge: Date of : 43 Report #: [id number] THIS REPORT FOR: //name// [facility] ED Test Date: 2019-05-10 Test Time: 19:15:55 Pat Name: NALDO GAMEZ Department: Room: 354 Gender: M Turkey Cleaner: ANIKA : 1945 Requested By: Dean Moreau Order Number: [id number] MD: Jerod Morrow Measurements Intervals [place] Rate: 68 P: -20 MA: 306 QRS: 16 QRSD: 83 T: 7 QT: 440 QTc: 469 Interpretive Statements Sinus rhythm Prolonged [place] interval Abnormal T, consider ischemia, anterior leads Compared to ECG 03/08/2019 08:05:59 T-wave abnormality now present Electronically Signed On 05-11-2019 11:53:41 SOCIAL WORKER by Jerod Morrow [email or web address] <ELECTRONICALLY SIGNED> By: Jerod Morrow MD, [facility] 05/11/19 1153 14 Jerod Morrow MD, [facility] /EPI
--- NOTE | 2019-05-11 17:00 | NUR ---
uneventful shift; neuro checks done as ordered without deficits. c/o h/a x1 was given tylenol with good result. Sleeping upon reassessment. Will continue to monitor.
--- NOTE | 2019-05-12 00:35 | NUR ---
PT RESTING IN BED, WATCHING PEOPLE IN BIRD. BED ALARM ON. PT IMPULSIVELY GETS OUT OF BED TO USE RESTROOM OR SIT ON EDGE OF BED. PT REDIRECTED TO CALL FOR STAFF BUT DOES NOT. PT C/O HEADACHE AFTER AMBULATING TO RESTROOM, PT LEANS TO THE BACK AND LEFT WHEN ESCORTED THIS SAIRA. PRN TYLENOL PROVIDED. PT SITTING UP IN CHAIR WITH ALARM. FLAT AFFECT GOOD EYE CONTACT, SLOW TO SPEAK VERBAL RESPONSES.
[2019-05-12 03:03] VITALS: BP 159/90
[2019-05-12 04:15] LABS: HEMATOCRIT 43.9 % (42.0-52.0); HEMOGLOBIN 14.6 gm/dL (14.0-18.0); MCH 27.6 pg (26.0-34.0); MCHC 33.2 g/dL (28.0-37.0); MCV 83.3 fL (80.0-100.0); RBC 5.27 mil/uL (4.50-6.00); RDW 15.7 % (10.5-14.5); WBC 7.7 thou/uL (4.0-11.0)
[2019-05-12 04:52] LABS: CALCIUM 8.6 mg/dL (8.5-10.1); CREATININE 1.1 mg/dL (0.7-1.3); POTASSIUM 3.4 mmol/L (3.5-5.1)
--- NOTE | 2019-05-12 06:15 | NUR ---
PT WAS AWAKE UNTIL APPROXIMATELY 0400, THEN HE FELL ASLEEP.
[2019-05-12 08:03] VITALS: BP 173/100
[2019-05-12 11:28] VITALS: BP 168/102
[2019-05-12 15:31] VITALS: BP 137/79
--- NOTE | 2019-05-12 16:48 | NUR ---
Assumed care approx. 0700 this AM. Pts blood pressure high this AM even after scheduled daily meds with complaints of a headache. Pt ranging 170s/ low 100's. Lisinopril added and BP rechecked with no improvement. 0.1 mg of clonidine added and patients BP decreased to the 130's. Patient has been resting in bed most of the day but occassionally up to the bathroom. Pts mentation seems to be improving. Patient ALOx4 but just slow to respond. Will continue to monitor. Dr. Foley spoke with patient at bedside this AM, and is hopeful to discharge patient tomorrow. Pt progressing toward plan of care goals.
[2019-05-12 20:00] VITALS: BP 142/82
[2019-05-13 04:14] VITALS: BP 145/87
[2019-05-13 05:55] VITALS: BP 145/87
--- NOTE | 2019-05-13 06:04 | NUR ---
Pt. stated he slept better last night . Denies any pain. Up with SBA to bathroom. Uses urinal at times when being reminded otherwise voids per toilet. He has been alert and orinted with no confusion during the night. Making progress towards care plan goals.
[2019-05-13 07:51] VITALS: BP 150/99
--- NOTE | 2019-05-13 14:54 | NUR ---
INITIAL ASSESSMENT: Received consult for discharge planning. PEDRO reviewed chart and spoke with nursing and attending physician. Pt was admitted from home due to AMS/HTN. Therapies ordered to evaluate pt for discharge needs. MRI ordered for today. PEDRO met with pt at bedside. Introduced role of PEDRO. Pt is alert/orientated to self and place. Pt known to SW from previous hospitalizations. Pt states he has been living at home alone. Pt's brother and [id number] do check on pt. Pt unable to recall name of prior SNF ([facility] in 2018) or HH agency that has seen him in the past. Pt has lived at [facility] and had [facility] in the past. PEDRO spoke with pt's brother, Rm, via phone. Per Rm, pt's overall condition has declined significantly since returning home from [facility]. Pt's brother and [id number]-[id number] check on pt daily to ensure that he is eating and taking his medications. Pt's brother states pt has been unable to make himself a microwave dinner the past several days. Pt used to see Dr. Saravia for primary care and saw Dr. Juares in the [facility] for the first time on Monday, 05/10. Rm states that pt has been hotlined in the past to the state due to concerns with pt living at home alone and unable to take care of himself. Per Rm, pt's son, Jorge L, who lives in [place] is pt's DPOA for healthcare. Jorge L is available to assist pt, but unable to come to due to his work schedule. PEDRO left voice message for Jorge L. PEDRO placed call to [facility] to determine if pt has an open case. Left message. Awaiting call back at this time. PEDRO is following to assist as needed with discharge planning.
--- NOTE | 2019-05-13 15:15 | NUR ---
Assumed care approx. 0700 this AM. Patient remains ALOx4 and slow to response. Blood pressure better controlled thus far into the shift. Patient changed to med-surg status. Patient noted to struggle with putting pieces together. For example, patient will put PO meds in mouth but look at this RN with a blank stare and not know what to do next so water is handed to the patient then he knows to take a sip and swallow meds. This information was passed on to Dr. Foley and vocational case manager. Plan is for a MRI tomorrow as long as patient's pacemaker is compatible. MRI requested for Dr. Myers's office to send pacemaker information over STAT. rd project manager is coordinating plans for patient after discharge. Pt slowly progressing toward plan of care.
[2019-05-13 15:41] VITALS: BP 135/78
[2019-05-13 20:05] VITALS: BP 153/88
--- NOTE | 2019-05-13 22:39 | NUR ---
Pt. transferred to room 464 with his belongings. Brother Rm notified.
[2019-05-13 22:43] VITALS: BP 157/88
--- NOTE | 2019-05-14 00:55 | NUR ---
ASSUMED CARE OF PT AT 2230HRS FROM 3W [facility]. PT IS AOX4 AT THE TIME OF ASSESSMED. AGREE WITH PREVIOUS NURSE'S ASSESSMENT. FALL PRECAUTION IN PLACE. VSS, WILL CONTINUE TO MONITOR.
[2019-05-14 05:00] VITALS: BP 165/90
--- NOTE | 2019-05-14 11:03 | NUR ---
Received awake on bed. Due medications given as prescribed, able to swallow meds w/o difficulty. On heart healthy diet- tolerating well; no nausea, no vomiting and no abdominal pain. Complained of headache- PRN medication given as prescribed. Vital signs stable. Assisted in ADLs. On room air. Able to sit out on chair, able to go to the toilet with standby assist. Falls bundle in place.
[2019-05-14 13:40] VITALS: BP 137/80
[2019-05-14 19:42] VITALS: BP 171/96
--- NOTE | 2019-05-14 20:06 | NUR ---
PATIENT TRANSFERRED FROM [facility], REPORT FROM CHARMAINE/RN. PATIENT ALERT, BUT FORGETFUL. MRI SCHEDULED IN AM 0815, THIS RN HAD THE PATIENT'S BROTHER ASSIST HIM WITH THE SCREENING FORM. PATIENT HAD 2 IV'S, LEFT FOREARM IV RED AT SITE AND PATIENT C/O BRYAN, THIS RN REMOVED THIS IV. PATIENT UP WITH ASSIST X 1 WITH GAIT BELT AND WALKER, CAN BE UNSTEADY. FALL PRECAUTIONS IN PLACE. WILL CONTINUE TO MONITOR.
[2019-05-14 21:00] VITALS: BP 186/105
[2019-05-14 22:45] VITALS: BP 147/98
--- NOTE | 2019-05-15 03:23 | NUR ---
Assumed pt mary ann at 1900. Pt is alert to self and place,impulsive at times and keeps getting OOB without calling for help reminded to use call light to call for help but doesn't do so. Pt's gait is unsteady;up with AX1/GB. Pt's BP elevated at HS;order obtained for Clonidine 0.1mgX1 from Yoselin Hidalgo and administered with relief noted. C/o a headache,Tylenol administered as well and effective. Pt has had episodes of bladder incontinence this shift as well as being continent. Fall precautions in place,and pt checked on frequently. Resting quietly at this time with no distress noted. Will continue to monitor pt.
[2019-05-15 08:58] VITALS: BP 157/93
--- NOTE | 2019-05-15 09:54 | NUR ---
PEDRO reviewed chart and spoke with nursing and attending physician. Pt [facility] . Pt to be transferred to CCU due to needing to have pacemaker evaluated. Pt also in need of MRI. PEDRO left voice message for pt's son, Jorge L ([phone]) to provide update and discuss discharge plan. Pt will need insurance authorization for post-acute placement. PEDRO is following to assist as needed with discharge planning.
--- NOTE | 2019-05-15 18:15 | NUR ---
ASSUMED CARE AT 0700. PT IS AOX1, NEEDS REDIRECTION, NO S/S OF PAIN. PT IS NOT ACTING IMPULSIVE. PT TOLERATING DIET AND TAKES PO PILLS WHOLE WITH WATER. FALL PRECAUTIONS IN PLACE, CALL LIGHT/PERSONAL ITEMS IN REACH. VSS, WILL CONTINUE TO MONITOR PT.
--- NOTE | 2019-05-15 19:23 | NUR ---
SPOKE TO DR. ROBERSON ABOUT OVEN WORKER PROCEDURE SCHEDULED FOR MONDAY PER DELONTE NURSE. PT WILL BE TRANSFERRED TO CCU WHEN BED IS AVAILABLE. PT VSS AT THIS TIME. MRI WAS NOT DONE D/T PACEMAKER BEING IN WRONG PLACE. PT DENIES PAIN, WILL CONTINUE TO MONTIOR PT.
[2019-05-15 19:56] VITALS: BP 154/80
[2019-05-16 00:20] VITALS: BP 150/79
[2019-05-16 04:37] VITALS: BP 151/89
--- NOTE | 2019-05-16 04:38 | NUR ---
Assumed pt care at 1900. Pt alert to self only,impulsive and keeps getting OOB without calling for help. Frequent toileting offered to pt although he'll decline the need to void and get up a few minutes later. VSS monitored every 4 hrs. Pt denies pain on assessment. Showered offered at HS but pt declined. Fall precautions in place, call light/personal items placed within reach. Noc subwarehouse supervisor updated on pt MRI/pacemaker deal as well as anticipated xfer to CCU;no orders written as well as bed availability will relay to day shift nurse fo follow up.
[2019-05-16 08:05] VITALS: BP 154/87
--- NOTE | 2019-05-16 09:44 | NUR ---
NURSE CALLED DR. MARTEL OFFICE. SPOKE TO NURSE SANTOS, PT WILL RECEIVE LEAD REVISION IN COMPUTER AIDED DESIGN OPERATOR TOMORROW. PT NEEDS TO ARRIVE BY [employer] FOR CHEST WASHING, AND WILL NEED CHEST WASHING TONIGHT WITH ANTIBIOTIC SOLUTION. PT WILL BE NPO AFTER MIDNIGHT ONLY GIVE MEDS AND CLEAR LIQUIDS, AT 5AM MEDICATION ONLY. PT DOES NOT NEED TO TRANSFER TO CCU. PT WILL REMAIN ON [facility]. NURSE SANTOS WILL FAX ORDERS TO COMPUTER AIDED DESIGN OPERATOR. WILL CONTINUE TO MONITOR PT.
--- NOTE | 2019-05-16 12:13 | NUR ---
DISCHARGE PLANNING. POST ACUTE RECOMMENDED AT DISCHARGE. PATIENT REFERRAL FAXED TO [facility] FOR [facility]. CALL PLACED TO [place], OP ADMISSIONS, TO NOTIFY OF PATIENT REFERRAL. [facility] TO REVIEW AND NOTIFY CM. PATIENT REFERRAL FAXED TO [facility]. CALL PLACED TO [place] TO NOTIFY OF PATIENT REFERRAL. PATIENT TO HAVE CARDIAC CATH PROCEDURE TOMORROW. AWAITING RESPONSE. FOLLOWING.
--- NOTE | 2019-05-16 12:17 | NUR ---
SW reviewed chart and spoke with nursing and attending physician. Pt to remain on [facility]. Will not transfer to CCU. Pt to have revision of leads on pacemaker tomorrow per cardiology. Have not received call back from pt's son, Jorge L. PEDRO spoke with pt's brother, Rm, to discuss discharge planning. Pt's brother states that pt's house is currently for sale. Pt's brother that it is not the plan for pt to move in with him and , as pt reported to [facility] case fitter. Family is in support of pt being moved into a facility for fuel quality tech care/AL placement. Pt's brother states that they were agreeable with referrals to [facility] and [facility]. SW explained need for insurance authorization. interstate planner faxed referrals to [facility] and [facility] for review. PEDRO did speak with pt's son via phone to discuss discharge plan. Pt's son states that pt does not have either healthcare of financial DPOA. Pt's son states that he is willing to be involved in pt's care, but he lives in [place]. Pt's son is unsure of pt's current financial situation. Pt's son agreeable with placement at either [facility] of [facility]. PEDRO is following to assist as needed with discharge planning.
[2019-05-16 16:41] VITALS: BP 150/80
[2019-05-16 20:15] VITALS: BP 145/88
[2019-05-17] VITALS (8 sets, daily range): BP systolic 133–172; BP diastolic 76–87
--- NOTE | 2019-05-17 01:07 | NUR ---
ASSUMED PT CARE AT 1920. PT HAS AN IV IN THE LFA. PT TOOK EVENING MEDS WITH NO PROBLEM. PT SHOWED SOME CONCERN THAT HIS SON HAD NOT CALLED HIM BACK. I CALLED FOR HIM AND HE LEFT A VOICEMAIL INFORMING HIM OF HIS UPCOMING PRCEDURE. PT DOES NOT US THE CALL LIGHT TO LET US KNOW HE NEEDS TO GET UP. WHEN I ASK HIM HE STATES THAT HE DOES NOT FEEL THE NEED TO OR SEE THE PURPOSE. EVERYTIME I RE EXPLAIN THE PURPOSE OF THE CALL LIGHT. PT ALMOST WALKED INTO THE WALL AFTER SETTING OFF THE BED ALARM AND NOT CALLING FOR HELP. PT HAS NOT BEEN TO SLEEP YET. I OFFERED TO WASH THE PT'S CHEST WITH THE CHLORHEXIDINE AND HE TOLD ME HE WOULD PREFER IT LATER. I WILL CONTINUE TO MONITOR.
--- NOTE | 2019-05-17 08:12 | NUR ---
john left message with harlan raymond with [employer] to make sure she is aware that when pt is dc he will be going snf and will need insurance auth.
--- NOTE | 2019-05-17 10:45 | NUR ---
PEDRO reviewed chart and spoke with nursing and attending physician. Pt to have pacemaker lead revision today. Pt will then transfer to a telemetry unit. [facility] can accept pt pending insurance authorization. PEDRO spoke with pt's son, Jorge L and brother, Rm, via phone to provide update. Both are aware and agreeable with discharge plan. Rm would like to be notified when pt is discharged, so he can bring pt some clothes. PEDRO is following to assist as needed with discharge planning.
--- NOTE | 2019-05-17 10:47 | NUR ---
ASSUMED CARE OF PATIENT AT 0700. PT VSS AND NO C/O PAIN. NURSE SPOKE TO SON ELIANE GAMEZ FOR VERBAL CONSENT FOR LEAD REVISION. CONSENT FORM WAS SIGNED. PT WAS TRANSFERRED DOWN TO DIRECTOR OF PARTNER MARKETING. AFTER PROCEDURE HE WILL GO TO MED/TELE UNIT.
--- NOTE | 2019-05-17 11:21 | NUR ---
Assess due to length of stay. Pt on [facility] unit admitted with AMS. Lives alone however decreasing ability to care for self. Possible placement in LTC. Pt off unit for pacemaker leads revision. EMR reviewed and geriatric INTEGRATION ANALYST has indicated pt voiced wt loss. Wt records reviewed, highly variable from 150s-170s. Current wt is 175 lb. Eating 65-80% most meals. Will continue to follow intake trends and can add Ensure supplement if necessary. Otherwise low nutrition risk
--- NOTE | 2019-05-17 17:16 | NUR ---
PT TRANSFERED FROM [address] [place] [address]. HAD PACEMAKER LEAD REVISION THIS AM. PACEMAKER INCISION C/D/I. NO HEMATOMA NOTED. POST OP PACEMAKER INSTRUCTIONS GIVEN TO PT. IMMOBILIZER INTACT ON THE LEFT ARM. NO CARDIAC DISTRESS NOTED. WILL CONTINUE TO MONITOR.
--- NOTE | 2019-05-17 18:42 | NUR ---
PT ATTEMPTED NUMEROUS TIMES TO GET OFF THE BED. TOOK THE IMMOBILIZER OUT. PT INSTRUCTED THE IMPORTANCE OF KEEPING THE IMMOBILIZER ON. PT REPORTED THAT HE DID NOT CARE. DR MARTEL NOTIFIED. BED ALARM ON. PLAN TO MOVE PT CLOSE TO THE NURSING STATION. WILL CONTINUE TO MONITOR.
--- NOTE | 2019-05-17 21:38 | NUR ---
VAT CALLED TO PLACE A PIV IN RUE FOR IV PAIN MEDS. PT LT AC AREA IS EDEMETOUS, WARM AND PAINFUL TO TOUCH AND EXTREME ERYTHEMA OBSERVED FROM JUST DISTAL TO THE AC TO NEAR THE AXILLARY. VANCOMYCIN IS THE ONLY VESICANT ON THE MAR THAT HAS BEEN GIVEN THAT I CAN SEE DOCUMENTED. RN CALLED THE MD AND AN US WAS ORDERED TO RULE OUT A DVT. RECOMMENDED COLD PACKS PERIODICALLY IF THIS IS INDEED A VANCO EXTRAVASATION. NOTIFIED THE MAP MAKER SO SHE IS AWARE.
[2019-05-18 00:31] VITALS: BP 138/89
--- NOTE | 2019-05-18 06:22 | NUR ---
ASSUME CARE 1900. PT/VITALS STABLE. PATIENT COMPLAINS OF PAIN IN LEFT UPPER EXTREMITY. ON EXAMINATION, REDNESS, WARMTH, SWELLING, AND TENDERNESS NOTED ON LUE. DRY PAN FEEDER NOTIFIED AND US OF THE LEFT EXTREMITY DONE. IV CHNAGED FROM LEFT FOREARM TO RIGHT HAND. PACEMAKER INCISION SITE MASSIVELY SWOLLEN BUT NO DRAINAGE, HEMATOMA, BRUISING, OR BLEEDING NOTED. PT IS IMPULSIVE AND KEEPS JUMPING OUT OF BED TO USE THE URINAL DESPITE EDUCATION ON THE NEED TO STAY I BED UNTIL THE MORNING. ASSESSMENT HARTED. PROGRESSING MODERATELY WITH POC. PLAN IS POSSIBLE DISCHARGE TODAY AFTER CHEST XRAY TO CONFIRM PACEMAKER PLACEMENT. WILL CONITNUE TO MONITOR
[2019-05-18 08:07] VITALS: BP 158/78
[2019-05-18 12:28] VITALS: BP 113/67
[2019-05-18 14:11] LABS: HEMATOCRIT 44.4 % (42.0-52.0); HEMOGLOBIN 14.6 gm/dL (14.0-18.0); MCH 27.3 pg (26.0-34.0); MCHC 32.8 g/dL (28.0-37.0); MCV 83.2 fL (80.0-100.0); RBC 5.34 mil/uL (4.50-6.00); RDW 15.8 % (10.5-14.5); WBC 11.2 thou/uL (4.0-11.0)
[2019-05-18 15:00] LABS: ALBUMIN 2.9 g/dL (3.4-5.0); CALCIUM 9.3 mg/dL (8.5-10.1); CREATININE 1.2 mg/dL (0.7-1.3); POTASSIUM 3.2 mmol/L (3.5-5.1); TOTAL BILIRUBIN 0.6 mg/dL (<0.1-1.0); TOTAL PROTEIN 7.3 g/dL (6.4-8.2)
[2019-05-18 18:40] VITALS: BP 146/79
--- NOTE | 2019-05-18 18:45 | NUR ---
ASSUMMED PT CARE AT APPROXIMATELY 0700. PT ALERT AND ORIENTED TO PERSON, PLACE, AND TIME. FREQUENT REORIENTATION PROVIDED. PT DENIES HAVING CHEST PAIN. PT DENIES HAVING SOB. PT DENIES HAVING ACUTE PAIN. KEEPING WARM COMPRESSES ON PT'S L ARM AND ELEVATING ARM. PT AMBULATES STEADY C STANDBY. ENCOURAGING PT TO EAT AND DRINK. NOTIFIED OF NO NEW LABS IN SEVERAL DAYS. NEW LABS ORDERED. NOTIFIED OF LOW K+. ADDED NEW LABS. NEW ORDERS IMPLEMENTED. WILL CONTINUE TO MONITOR K+. PT COMFORTABLE IN BED. PT DENIES HAVING FURTHER CONCERNS. VITAL SIGNS STABLE.
[2019-05-18 19:28] VITALS: BP 139/79
[2019-05-19 04:33] LABS: FOLIC ACID 13.2 ng/mL (8.6-58.9)
[2019-05-19 06:00] VITALS: BP 163/84
--- NOTE | 2019-05-19 06:41 | NUR ---
ASSUME CARE 1900. PT/VITALS STABLE. INTERMITTENT PAIN INDICATED ON LUE. UP WITH ASSISTANCE AND TOLERATES ACTIVITY WELL. ADEQUATE REST NOTED WITH NO DISTRESS THROUGH THE NIGHT. SR ON MONITOR. ASSESSMENT CHARTED. PROGRESSING WELL WITH POC. REDNESS AND SWELLING ON LUE DECREASING. WARM COMPRESS APPLIED. PLAN IS POSSIBLE DISCHARGE WITHIN A FEW DAYS. WILL CONTINUE TO MONITOR AND FOLLOW WITH POC
--- NOTE | 2019-05-19 08:16 | NUR ---
ASSUMED CARE OF PT APPROX 0715,REC REPORT AT 0728, PT A&0X4, USES CALL LIGHT FOR NEEDS, WAS READY FOR BREAKFAST THIS A.M. HELPED MOVE TRAY CLOSER AND REMINDED HIM OF [employer] PLANT ENGINEER LIGHT FOR NEEDS, NO ACCU CHECK ORDERS, ENCOURAGED HIM TO USE CALL LIGHT FOR ANY NEEDS, SEE SEPARATE INTERVENTIONS FOR ASSESSMENTS
[2019-05-19 20:15] VITALS: BP 123/67
[2019-05-20 04:45] VITALS: BP 131/64
[2019-05-20 07:30] VITALS: BP 150/75
[2019-05-20 09:52] LABS: CALCIUM 9.2 mg/dL (8.5-10.1); CREATININE 1.2 mg/dL (0.7-1.3); POTASSIUM 3.3 mmol/L (3.5-5.1)
--- NOTE | 2019-05-20 11:00 | NUR ---
ALERT. SLOW MENTATION, DIFFICULTY FINDING HIS WORDS. ALTERNATELY USES AND DOES NOT USE THE CALL LIGHT. FALL PRECAUTIONS IN PLACE. SR/ST PER TELE. WILL CONTINUE TO FOLLOW CLOSELY.
[2019-05-20 11:30] VITALS: BP 120/65
--- NOTE | 2019-05-20 15:31 | NUR ---
Sp with [facility] who is in process of submitting for auth. Faxed updated therapy notes. Sp with patient who appears to struggle to find words. Called son to determine dc planning. Left message with son.
[2019-05-20 17:00] VITALS: BP 110/56
[2019-05-20 21:00] VITALS: BP 128/67
[2019-05-21 04:45] VITALS: BP 128/68
--- NOTE | 2019-05-21 04:49 | NUR ---
ASSUMMED PT CARE AT 1900, PT ALERT AND ORIENTED X4 AND FORGETFUL, PT IS CALM AND APPROPRIATE, ASSESSMENTS CHARTED, COMPLAINED OF PAIN ON THE LEFT ARM, MEDICATED PRN NO FURTHER COMPLAINS, DENIES CHEST PAIN OR COUGH, RESTED WELL THROUGH THE NIGHT, WILL CONTINUE TO MONITOR
[2019-05-21 07:30] VITALS: BP 132/74
[2019-05-21] MEDS ORDERED: MINOCIN50 MG PO (08:35)
[2019-05-21] MEDS ORDERED: LISINOPRIL10 MG PO (08:36)
[2019-05-21] MEDS ORDERED: CATAPRES0.1 MG PO (08:36)
[2019-05-21] MEDS ORDERED: ASPIR 8181 MG PO (08:36)
[2019-05-21] MEDS ORDERED: NIFEDIPINE ER30 M1 PO (08:36)
--- NOTE | 2019-05-21 11:02 | NUR ---
ASSUMED CARE AT 0700, SHIFT ASSESMENT DONE, MEDS GIVEN, VSS. DENIES PAIN, NAUSEA, VOMITING. UP WITH STAND BY ASSIST. M/S, ROOM AIR. DISCHARGE ORDER RECEIVED, PENDING AUTHRIZATION FOR INSURANCE TO GO [facility]. WILL CONTINUE TO ASSESS AND ASSIST WITH ADLs NEEDED.
--- NOTE | 2019-05-21 13:57 | NUR ---
[facility] has not submitted for auth skilled. Requested they SUBMIT for auth today. Called son yesterday and today and left message to call casemgt. Patient with difficulty word finding. Patient likely needs ltc. It is noted patients home for sale but unsure if an agent and finances for ltc. Plan to discuss further with son.
[2019-05-21 18:53] VITALS: BP 129/76
--- NOTE | 2019-05-21 19:26 | NUR ---
PATIENT TRANSFERRED FROM [address] [place] [address], REPORT FROM ARLEEN/RN. PATIENT ALERT AND ORIENTED X 4, CAN BE FORGETFUL. PATIENT DENIES PAIN UPON ARRIVAL TO THE UNIT AT 1730. PATIENT UP WITH SBA, UNSTEADY ON HIS FEET, FALL PRECAUTIONS IN PLACE, PATIENT INSTRUCTED TO CALL NURSING FOR ASSISTANCE. WILL CONTINUE TO MONITOR.
[2019-05-21 20:17] VITALS: BP 127/83
--- NOTE | 2019-05-22 03:41 | NUR ---
ASSUMED PT CARE AT 1900. PT IS A&OX4. PT HAS AN IV IN THE RIGHT HAND. PT TOOK SCHEDULED MEDICATION. PT HAS BEEN INSTRUCTED TO USE THE CALL LIGHT. PT DOES GET UP TO USE THE RESTROOM. PT IS A HIGH FALL RISK. PT HAS AN UNSTEADY GAIT. PT WOULD LIKE TO GET SOME SLEEP THIS EVENING. PT IS RESTING IN HIS ROOM. WILL CONTINUE TO MONITOR.
--- NOTE | 2019-05-22 08:50 | NUR ---
FAXED PT NOTES 05/21 TO [facility] SPOKE WITH NIKUNJ GUAN SHE RECEIVED THEM AND SUBMITTED FOR AUTH.
[2019-05-22 09:50] VITALS: BP 170/88
--- NOTE | 2019-05-22 10:05 | CATHLAB ---
[facility] [address] [place] [address] INVASIVE PROCEDURE REPORT Name: NALDO GAMEZ Room #: 406-P [facility] IN ..#: [id number] Admission: 05/10/19 Attend Phys: Jorge Guevara MD Discharge: Date of : 43 Report #: [id number] THIS REPORT FOR: //name// APPROVED REPORT Study performed: 05/17/2019 12:34:46 Patient Status: In-Patient Room #: Event Personnel: Melecio Myers Vp Public Relations, Elmer Tiwari Johnson, Ashley RN RN, Diana Hernandez RTR, KILN PACKER Monitor Exam: RV Lead Removal/RV Lead Insertion Indications: lead malfunction The patient is a 74 year-old male with a history of symptomatic bradycardia AV block sick sinus syndrome. Conscious Sedation Start time: 12:51 End Time: 14:40 Versed 6 mg Demerol-50mg Implanted Devices: [facility]: RV Lead; TENDRIL STS; Reference #[id number]; SN: [id number] Procedure The patient underwent informed consent. We discussed the details of the procedure including the risks, which include, but not limited to bleeding, infection, vascular damage, cardiac perforation, and pneumothorax. After informed consent was obtained the patient was brought to the cardiac catheterization lab insert condition. The left chest was prepped and draped in usual sterile manner and 2 mg of Versed and 25 of IV Demerol were given for sedation. Local anesthetic of 1% lidocaine was instilled along the prior incision and deep. Using both sharp and blunt dissection the pacemaker was identified and delivered from the pocket. The ventricular lead which had what appeared to be micro-dislodgment was then released from sutures and the coil was retracted. The position of the lead was then retested with adequate thresholds and upon extension of the coil the coil would not extend. In view of this the lead was removed and a new separate subclavian vein puncture via modified Seldinger technique utilizing a micropuncture system was performed. A new ventricular lead was then placed in position in the apex and secured with the tip coil as a usual screw-in leads. Thresholds were satisfactory. Lead was then [facility] [place] [address] INVASIVE PROCEDURE REPORT Name: NALDO GAMEZ Room #: 406-P [facility] IN M.R.#: [id number] Admission: 05/10/19 Attend Phys: Jorge Guevara MD Discharge: Date of : 43 Report #: [id number] reattached with the device and antibiotic solution was then utilized to irrigate the pocket the device itself the chest that was in the surgical field and the device was placed once again after suture secured the new ventricular lead. Hemostasis was achieved and requiring some Gelfoam. Closure was performed with 2 layers of running locking nonabsorbable suture and the skin was closed with 3-0 Vicryl subcuticular fashion. Steri-Strips 4 x 4 OpSite were utilized. Patient tolerated procedure well were no complications Electrode Parameters P Wave: 4.1mV R Wave: >12.0mV Atrial Threshold: 0.5V @ 0.8ms Ventricular Threshold: 0.875V @ 0.5ms Atrial Resistance: 550 Ventricular Resistance: 710 Complications The patient tolerated the procedure well and there were no complications associated with the procedure. Conclusion 1. Successful ventricular lead replacement Recommendations 1. Routine post pacemaker implantation protocol <ELECTRONICALLY SIGNED> By: Melecio Myers MD 05/22/19 1004 03 100 Melecio Myers MD /INF
--- NOTE | 2019-05-22 15:54 | NUR ---
PEDRO reviewed chart and spoke with nursing and attending physician. Pt was [facility] to [facility] from . Pt is progressing towards goals for discharge. [facility] has submitted for insurance authorization. media planner / buyer faxed clinical/therapy updates for review. PEDRO met with pt at bedside. Pt alert/orientated to self only. Pt unable to recall when he was admitted to the hospital and reason for admission. Pt needs LTC placement or 24 hour care. PEDRO left voice message for pt's son, Jorge L ([phone]) to discuss discharge plan. PEDRO is following to assist as needed with discharge planning.
--- NOTE | 2019-05-22 15:56 | NUR ---
UPDATED CLINICAL INFORMATION FAXED TO [place], [facility] ADMISSIONS. INSURANCE AUTH PENDING. AWAITING RESPONSE. UNIT SW AWARE.
[2019-05-22 16:33] VITALS: BP 121/72
--- NOTE | 2019-05-22 19:32 | NUR ---
ASSUMED CARE OF PATIENT AT 0715, PATIENT ALERT AND ORIENTED, CAN BE FORGETFUL. UP WITH SBA, UNSTEADY GAIT. FALL PRECAUTIONS IN PLACE. PACEMAKER REVISION, DRESSING IN PLACE, WITH SMALL AMT. OF DRY BLOOD, DR AWARE. LEFT ARM CELLULITIS, SWOLLEN WITH REDNESS. RIGHT HAND IV, REMAINS PATENT. CM WORKING ON PLACEMENT, CALLS OUT TO FAMILY, NO RETURN CALLS. PO MEDS. C/O PAIN WITH LEFT ARM, TYLENOL 650MG GIVEN WITH PARTIAL RELIEF. WILL CONTINUE TO MONITOR.
[2019-05-22 20:21] VITALS: BP 141/78
--- NOTE | 2019-05-23 05:21 | NUR ---
ASSUMED PT CARE AT APPROX. 1915. PT IS A&OX4 BUT FORGETFUL. PT HAS A RIGHT HAND IV SALINE LOCKED. PT STATES THAT HE HAS A PAIN LEVEL OF 6 ON HIS LAC AND SURROUNDING AREA. I GAVE TYLENOL WITH HIS SCHEDULED MEDICATION. HE TOOK HIS MEDICATION WITH NO ISSUES. PT IS A FALL RISK. PT WILL SOMETIMES CALL OUT AND SOMETIMES SETS OFF THE BED ALARM. PT RESTS IN BED. WILL CONTINUE TO MONITOR.
[2019-05-23 07:20] VITALS: BP 153/91
--- NOTE | 2019-05-23 10:00 | NUR ---
PEDRO reviewed chart and spoke with nursing. PEDRO notified that [facility] has obtained insurance authorization. However, per Farzana at [facility], they are unable to accept pt at this time. PEDRO discussed with Director of Case Mgmt and Personal Care Attendant. PEDRO is following to assist as needed with discharge planning.
--- NOTE | 2019-05-23 10:43 | NUR ---
ASSUMED CARE OF PT AT 0700. PT IS AOX4 FORGETFUL AT TIMES. FALL PRECAUTIONS IN PLACE. PT VSS, TAKES MEDS WHOLE WITH WATER, NO C/O PAIN. PT CALLS APPROPRIATELY. PT AMBULATES WITH STANDBY ASSIST TO RESTROOM. CALL LIGHT/PERSONAL ITEMS IN REACH. WILL CONTINUE TO MONITOR PT.
[2019-05-23 15:00] VITALS: BP 122/70
--- NOTE | 2019-05-23 17:10 | NUR ---
PT WAS DIS[facility]GED TO [facility]. NURSE CALLED [facility] FOR NURSE TO CALL BACK FOR REPORT. PT IS AOX4, NO PAIN, VSS. TRANSPORT VAN WILL TAKE PT TO FACILITY.
== END 2019-05-23 17:22 | DRG 261 ==
LOC: ER 19:05 → 4N 20:50 → 3W 20:50 → EROBS 20:50 → 3W 22:19 → 4W 05-13 22:40 → 4N 05-14 12:25 → 2N 05-17 15:25 → ENTRNSPT 05-21 16:16 → 4N 05-21 17:32
PROVIDERS: Emergency Medicine; Hospitalist; Internal Medicine; ADMIT Internal Medicine
PROC: 4B02XSZ Measurement of Cardiac Pacemaker, External Approach (ICD-10-PCS; principal; 2019-05-10)
PROC: 02WA3MZ Revision of Cardiac Lead in Heart, Percutaneous Approach (ICD-10-PCS; 2019-05-17)
DX: I16.0 Hypertensive urgency (principal); L03.115 Cellulitis of right lower limb; E46 Unspecified protein-calorie malnutrition; I10 Essential (primary) hypertension; F32.9 Major depressive disorder, single episode, unspecified; F41.9 Anxiety disorder, unspecified; R00.1 Bradycardia, unspecified; F01.50 Vascular dementia, unspecified severity, without behavioral disturbance, psychotic disturbance, mood disturbance, and anxiety; G47.00 Insomnia, unspecified; N40.0 Benign prostatic hyperplasia without lower urinary tract symptoms; E78.5 Hyperlipidemia, unspecified; R63.4 Abnormal weight loss; Z88.0 Allergy status to penicillin; Z68.24 Body mass index [BMI] 24.0-24.9, adult; Z90.49 Acquired absence of other specified parts of digestive tract; Z87.891 Personal history of nicotine dependence; Z88.8 Allergy status to other drugs, medicaments and biological substances
CPT/HCPCS: 10045; 10081; 10790; 10797; 10879